=== PATIENT | female | born 1985 | race Caucasian/White ===

== ENCOUNTER 2017-01-25 18:29 | Inpatient (IN) | payer OTHER ==
[~2017-01-25] VITALS: Ht 165.1 cm; Wt 86.2 kg
[~2017-01-25 18:29] MED LIST: ALBUTEROL0.09 MG/A1 INH; AMOXIL500 MG PO; BACTRIM DS 8001 TAB PO; CIPRO 500MG TA500 MG PO; ISENTRESS400 MG PO; KEFLEX500 MG PO; LEVSIN0.125 M1 PO; MOBIC15 MG PO; MULTI-DAY PLUS1 TAB PO; PROMETHAZINE HC25 M3 PO; PYRIDIUM200 MG PO; TORADOL10 MG PO; TRAMADOL50 MG PO; TRUVADA 200 MG-1 TAB PO; VIBRAMYCIN 100100 MG PO
--- NOTE | 2017-01-25 18:58 | NUR ---
C/O ALL OVER BACK PAIN, PRIMARILY THORACIC THAT RADIATES INTO RIB CAGE AND R SIDED ABDOMEN XMONTHS. PT HAS SOB AND COUGHING WITH BROWN/BLACK SPUTUM. PT HAS HX LIVER DISEASE. SEVERE PAIN AFTER EATING, HAS DUMPING SYNDROME S/P GASTRIC BYPASS. PT IS HYPERVERBAL. +TINGLING TO BILATERAL HANDS. AAOX3
[2017-01-25 19:10] LABS: ABSOLUTE BASOPHIL COUNT 0 /CUMM (0.0-0.2); ABSOLUTE EOSINOPHIL COUNT 0 /CUMM (0.0-0.7); ABSOLUTE GRANULOCYTE CT 1.2 /CUMM (1.4-6.5); ABSOLUTE LYMPH COUNT 1.2 /CUMM (1.2-3.4); ABSOLUTE MONOCYTE COUNT 0 /CUMM (0.10-0.60); BASOPHIL % 0.2 % (0.0-2.0); EOSINOPHIL % 0.3 % (0-5); GRANULOCYTE % 48.9 % (42.2-75.2); MEAN CORPUSCULAR HGB 36.6 PG (27.0-31.0); MEAN CORPUSCULAR HGB CONC 33.8 G/DL (33.0-37.0); MEAN CORPUSCULAR VOLUME 108.2 FL (81.0-99.0); MEAN PLATELET VOLUME 8.4 FL (7.4-10.4); PLATELET COUNT 190 /CUMM (130-400); RBC DISTRIBUTION WIDTH 42.5 % (11.5-14.5); RED BLOOD CELL CT 1.52 /CUMM (4.20-5.40); WHITE BLOOD CELL COUNT 2.5 /CUMM (4.8-10.8)
[2017-01-25 19:30] LABS: HEMATOCRIT 16.5 % (37-47)
--- NOTE | 2017-01-25 19:30 | NUR ---
CRITICAL TEST RESULTS [id number] TITI REEVES 31 F TESTS AND RESULTS: HGB 5.6 HCT 16.5 Results received and read back by: BARAK GONZALEZ Results received date and time: 01/25/171929 The following provider was notified of the results, and read the results back: JONNATHAN MONCADA Notified date and time: 01/25/17 at 1931
--- NOTE | 2017-01-25 19:39 | ED GENERAL ADULT ---
History of Present Illness General Chief Complaint: Upper Extremity Problem Stated Complaint: SHOULDER AND ARM PAIN X MONTHS Source: patient Exam Limitations: no limitations Vital Signs & Intake/Output Vital Signs & Intake/Output Vital Signs Date Time Temp Pulse Resp B/P B/P Pulse O2 O2 Flow FiO2 Mean Ox Delivery Rate 01/25 2150 98.5 89 18 118/59 100 Room Air 01/25 1907 97.9 92 18 123/74 100 01/25 1845 98.5 105 16 137/64 100 Room Air Allergies Coded Allergies: doxycycline (Intermediate, GI DISTRESS 10/11/15) Iodinated Contrast- Oral and IV Dye (IODINATED CONTRAST MEDIA - IV DYE) (HIVES, ITCHY, PHOTOSENSITIVE 10/11/15) Penicillins (GI DISTRESS 10/11/15) aspirin (AVOIDS 10/11/15) cortisone (SWELLING IN KNEES, FEVER 10/11/15) acetaminophen (Intermediate, LIVER DISEASE 10/11/15) shellfish derived (Intermediate, HIVES 10/11/15) morphine (Mild, NAUSEA 10/11/15) hydrocodone (LIVER PAIN 10/11/15) Reconcile Medications Hyoscyamine (Levsin) 0.125 MG TABLET 1-2 TAB PO Q6P PRN ABDOMINAL CRAMPS Hyoscyamine (Levsin) 0.125 MG TABLET 1 TAB PO Q4 PRN ABDOMINAL SPASMS Promethazine HCl 25 MG TABLET 1 TAB PO Q6P PRN NAUSEA/VOMITING Triage Note: C/O ALL OVER BACK PAIN, PRIMARILY THORACIC THAT RADIATES INTO RIB CAGE AND R SIDED ABDOMEN XMONTHS. PT HAS SOB AND COUGHING WITH BROWN/BLACK SPUTUM. PT HAS HX LIVER DISEASE. SEVERE PAIN AFTER EATING, HAS DUMPING SYNDROME S/P GASTRIC BYPASS. PT IS HYPERVERBAL. +TINGLING TO BILATERAL HANDS Triage Nurses Notes Reviewed? yes Onset: Gradual Duration: worse persistent since (2-3 months) Timing: recent history Injury Environment: home Severity: moderate Severity Numbers: 7 No Modifying Factors: none : No Patient currently breastfeeds: No HPI: Patient is a 31-year-old female with history of anemia, chronic cirrhosis, presenting to the emergency Department chief complaint of generalized malaise, diarrhea intermittently, bilateral neck and shoulder pain that radiates down the arms causing numbness and tingling over the past 2-3 months. Patient also reports increasing in her sleep habits. Reports that she is very tired all of the time. Denies any nausea or vomiting. She does report abdominal discomfort with eating. She serve forts mucousy stool at times with remote history of Escherichia coli infection. Has seen a supervisor core shop in the past for her anemia, they were discharged out of the care of a supervisor core shop because everything was "okay". Patient did receive blood transfusions last year but nothing recently. Denies any blood in the stool. She does admit to getting her menstrual period yesterday. usually heavy flow for the first 3 days. Patient reports her symptoms started 2-3 months ago. (CORAL WHYTE) Past History Travel History Traveled to [place] past 21 day No Medical History Any Pertinent Medical History? see below for history Neurological: NONE EENT: NONE Cardiovascular: NONE Respiratory: BRONCHITIS1 Gastrointestinal: DUMPING SYNDROME S/P GASTRIC BYPASS Hepatic: CHRONIC CIRRHOSIS OF LIVE Renal: NONE Musculoskeletal: R ARM FX Psychiatric: anxiety, bipolar disease, depression, MANIC DEPRESSION PTSD Endocrine: NONE Blood Disorders: anemia Other Medical Hx: morbid obesity complicated with fatty liver w/ cirrhosis s/p gastric bypass in 2005, mood disorder including bipolar disorder History of MRSA: No History of VRE: No History of CDIFF: No Surgical History Surgical History: non-contributory Psychosocial History Who do you live with Father Services at Home None What is your primary language Lao Tobacco Use: Current Daily Use Daily Tobacco Use Amount/Type: => 5 Cigarettes daily Illicit Drug Use: cocaine Family History Family History, If Any: MOTHER FH: hepatitis FH: liver disease FATHER FH: skin cancer Hx Contributory? No (CORAL WHYTE) Review of Systems Review of Systems Constitutional: Reports: malaise, weakness. Comments Review of systems: See HPI, All other systems negative. Constitutional, no chills fever or weight loss HEENT: No visual changes no sore throat no congestion Cardiovascular: No palpitation , orthopnea or ankle swelling Skin, no jaundice no rashes Respiratory: No dyspnea cough sputum or hemoptysis GI: no vomiting : No dysuria No hematuria Muscle skeletal: Positive neck and back pain Neurologic: No numbness no confusion Psych: No stress anxiety or depression,. Heme/endocrine: No bruising no bleeding no polyuria or polydipsia Immunology: No splenectomy or history of AIDS (CORAL WHYTE) Physical Exam Physical Exam General Appearance: well developed/nourished, alert, awake, comfortable Comments: Well-developed well-nourished person in no acute distress HEENT: Normal EENT exam, extraocular motion intact, no nystagmus. Pupils equally round and reactive to light and accommodation. Nose is atraumatic. External auditory canal and Tympanic membranes clear. Pharynx normal. No swelling or edema. Pallor noted to palpable conjunctiva bilaterally. Neck: Supple, no lymphadenopathy, normal range of motion without pain or tenderness, full rom. Back: Positive right CVA tenderness. Full range of motion. Tender to palpation along the thoracic and lumbar prespinal muscles on the right side only., Cardiovascular: Regular rate and rhythms no murmurs rubs or gallops, normal JVP Respiratory: Chest nontender. No respiratory distress.breath sounds clear to auscultation bilaterally Abdomen: Soft, nontender nondistended, no appreciable organomegaly. Normal bowel sounds. No ascites, tender to palpation over the right flank, right upper quadrant. No guarding. No rebound tenderness. rectal: Nontender, guaiac-negative brown stool. Extremity: No edema, no calf tenderness to palpation, normal and equal pulses. Full range of motion of upper and lower EXT WITHOUT PAIN. Neuro: Alert oriented x3, motor sensory normal, cranial nerves II through XII grossly intact. Skin: Slight jaundice noted to palms bilaterally, otherwise no distinct rashes noted. Psych: Mood and affect is normal, memory and judgment is normal. Core Measures ACS in differential dx? Yes CVA/TIA Diagnosis: No Severe Sepsis Present: No Septic Shock Present: No (JAVI DE SANTIAGO,CORAL) Progress Differential Diagnoses I considered the following diagnoses in my evaluation of the patient: Hemolytic anemia, GI bleed, gastritis, peptic ulcer disease, pancreatitis, fibromyalgia, radicular pain, herniated disc, pneumonia, chronic bronchitis, MUSCLE STRAIN, LIVER CIRROSIS Plan of Care: Orders Procedure Date/time Status Regular Diet 01/26 B Active CBC WITHOUT DIFFERENTIAL 01/26 600 Active BASIC ELECTROLYTES PLUS BUN&CR 01/26 600 Active Pathway - chart 01/26 2248 Active House Staff 01/26 2248 Active Patient Data 01/26 2248 Active Patient Data 01/26 2148 Active OXYGEN SETUP (GEN) 01/25 2130 Active Saline Lock 01/25 2130 Active Admit to inpatient 01/25 2130 Active Vital Signs 01/25 2130 Active Activity/Ambulation 01/25 2130 Active Code Status 01/25 2130 Active Add-on Test (ER Only) 01/25 2121 Active BLOOD PRODUCT PICKUP 01/25 2113 Active LEUKOCYTE POOR (PACKED CELLS) 01/26 2012 Active Add-on Test (ER Only) 01/25 2005 Active Intake & Output 01/25 1958 Active URINE 01/26 1940 Complete URINE DRUG SCREEN FOR ER ONLY 01/26 1940 Complete URINALYSIS 01/26 1940 Complete Add-on Test (ER Only) 01/25 1937 Active PARTIAL THROMBOPLASTIN TIME 01/25 1935 Complete PROTHROMBIN TIME 01/25 1935 Complete TYPE & SCREEN (NOT X-MATCH) 01/25 1935 Active Add-on Test (ER Only) 01/25 1925 Active TROPONIN LEVEL 01/25 1900 Complete LYME TITRE 01/25 1900 Active FOLIC ACID 01/25 1900 Complete ETHANOL 01/25 1900 Complete DIRECT BILIRUBIN 01/25 1900 Complete VITAMIN B12 01/25 190 Complete LIPASE 01/25 184 Complete COMPREHENSIVE METABOLIC PANEL 01/25 184 Complete CBC WITHOUT DIFFERENTIAL 01/25 184 Complete AMYLASE 01/25 184 Complete EKG 01/25 184 Active VTE Mechanical Prophylaxis 01/25 UNK Active Laboratory Tests 01/25/172049: Urine Opiates Screen < 100.00, Methadone Screen < 40, Barbiturate Screen < 60, Ur Phencyclidine Scrn < 6.00, Amphetamines Screen < 100, U Benzodiazepines Scrn < 85, Urine Cocaine Screen 668 H, Urine Cannabis Screen < 5.00, Urine Color YEL , Urine Clarity CLEAR, Urine pH 6.0, Ur Specific [place] 1.020, Urine Protein NEG, Urine Ketones NEG, Urine Nitrite NEG, Urine Bilirubin NEG, Urine Urobilinogen >=8.0 H, Ur Leukocyte Esterase TRACE H, Ur Microscopic SEDIMENT EXAMINED, Urine RBC RARE, Urine WBC 1-3 H, Ur Epithelial Cells FEW, Urine Bacteria RARE H, Urine Hemoglobin NEG, Urine Glucose NEG, Urine Test NEGATIVE 01/25/171953: PT 11.2, INR 1.07, APTT 28 01/25/171899: Anion Gap 10, Estimated GFR > 60, BUN/Creatinine Ratio 16.0, Glucose 119 H, Calcium 8.5, Total Bilirubin 1.4 H, Direct Bilirubin 0.3, AST 62 H, ALT 49, Alkaline Phosphatase 75, Troponin I < 0.01, Total Protein 6.7, Albumin 4.0, Globulin 2.7, Albumin/Globulin Ratio 1.5, Amylase 42, Lipase 87, Vitamin B12 < 159 L, Folate 11.6, CBC w Diff NO MAN DIFF REQ, RBC 1.52 L, MCV 108.2 H, MCH 36.6 H, RDW 42.5 H, MPV 8.4, Gran % 48.9, Lymphocytes % 49.4, Monocytes % 1.2 L, Eosinophils % 0.3, Basophils % 0.2, Absolute Granulocytes 1.2 L, Absolute Lymphocytes 1.2, Absolute Monocytes 0 L, Absolute Eosinophils 0, Absolute Basophils 0, PUBS MCHC 33.8, Lyme Disease Antibody Pending, Serum Alcohol < 10.0 Diagnostic Imaging: Viewed by Me: Radiology Read. Discussed w/RAD: Radiology Read. Radiology Impression: PATIENT: TITI REEVES PRESENT AGE: 31 PATIENT ACCOUNT NO: [id number] : 83 LOCATION: [facility] ORDERING PHYSICIAN: CORAL DE SANTIAGO SERVICE DATE: 01/25/17 EXAM TYPE: RAD - XRY-CHEST XRAY, PA AND LATERAL EXAMINATION: XR CHEST CLINICAL INFORMATION: Productive cough. COMPARISON: None TECHNIQUE: 2 views of the chest were obtained. FINDINGS: No significant abnormality is noted involving the heart , lungs, mediastinum, bony thorax or soft tissues. IMPRESSION: Unremarkable examination. DICTATED BY: SOPHIA HEIN MD DATE/TIME DICTATED:01/25/171937 EMERGENCY MANAGER:LAYNE DATE/TIME TRANSCRIBED:01/25/171937 CONFIDENTIAL, DO NOT COPY WITHOUT APPROPRIATE AUTHORIZATION. <Electronically signed in Other Vendor System> SIGNED BY: SOPHIA HEIN MD 01/25/171940, PATIENT: TITI REEVES PRESENT AGE: 31 PATIENT ACCOUNT NO: [id number] : 83 LOCATION: ER ORDERING PHYSICIAN: CORAL DE SANTIAGO SERVICE DATE: 01/25/17 EXAM TYPE: CAT - CT ABD & PELVIS W/O IV CONTRAS EXAMINATION: CT ABDOMEN AND PELVIS WITHOUT CONTRAST CLINICAL INFORMATION: Right flank pain COMPARISON: Baseline 06/22/2016 TECHNIQUE: Multidetector volumetric imaging was performed from the superior aspect of the liver through the pubic symphysis. Sagittal and coronal reformatted images were obtained on the technologist's workstation. DLP: 753 mGy-cm FINDINGS: LUNG BASES: The visualized lung bases are unremarkable. LIVER, GALLBLADDER, AND BILIARY TREE: Moderate nonspecific hepatomegaly. Gallbladder not visualized. No biliary dilatation. No focal lesion. PANCREAS: Unremarkable. SPLEEN: Spleen is bulbous and enlarged measuring at least 14.4 cm. ADRENAL GLANDS: Unremarkable. KIDNEYS AND URETERS: The kidneys are normal in size, shape, and attenuation. No hydronephrosis, hydroureter, or calculi seen. No perinephric stranding. BLADDER: Unremarkable. GASTROINTESTINAL TRACT: The gastric bypass surgical changes. Anatomy limited detail. Distal Kaic- en-Y loop anastomosis appears intact. No obstruction. Moderate stool retention. Small and large bowel are unremarkable. ABDOMINAL WALL: No significant hernia is appreciated. LYMPH NODES: There is diffuse mild lymphadenopathy throughout the retroperitoneum inguinal regions and mesentery. No pathologic enlargement. VASCULAR: Unremarkable. PELVIC VISCERA: Unremarkable. OSSEOUS STRUCTURES: Unremarkable. IMPRESSION: Diffuse mild lymphadenopathy without significant progression or regression. Nonspecific hepatosplenomegaly. No bowel pathology acutely. Once again this is nonspecific but lymphoproliferative disorder should be considered as previously suggested. No stones or obstructive uropathy. DICTATED BY: SOPHIA HEIN MD DATE/TIME DICTATED:01/25/172139 EMERGENCY MANAGER: LAYNE DATE/TIME TRANSCRIBED:01/25/172139 CONFIDENTIAL, DO NOT COPY WITHOUT APPROPRIATE AUTHORIZATION. <Electronically signed in Other Vendor System> SIGNED BY: SOPHIA HEIN MD 01/25/172147 Initial ED EKG: NSR (99 BPM) (CORAL WHYTE) Departure Departure Time of Disposition: 2137 Disposition: HOME OR SELF CARE Condition: Stable Clinical Impression Primary Impression: Symptomatic anemia Referrals: JAIME LOPEZ MD (PCP/Family) Departure Forms: Customer Survey General Discharge Information Admission Note Spoke With: ELIZ CONTE MD Documentation of Exam: Documentation of any treatments & extenuating circumstances including Concerns Regarding Discharge (functional status, medication knowledge or non-compliance, living conditions, etc.) that warrant an admission rather than observation: Patient requiring IV blood transfusion for symptomatic anemia, recheck H&H, may require hematology consultation. Discharge at this time would be medically harmful. May need GI consultation pending CT of the abdomen. (CORAL WHYTE) PA/PRACTICE ADMINISTRATOR Co-Sign Statement Statement: ED Attending supervision documentation- x I saw and evaluated the patient. I have also reviewed all the pertinent lab results and diagnostic results. I agree with the findings and the plan of care as documented in the PA's/PRACTICE ADMINISTRATOR's documentation. [] I have reviewed the ED Record and agree with the PA's/PRACTICE ADMINISTRATOR's documentation. [] Additions or exceptions (if any) to the PAs/PRACTICE ADMINISTRATOR's note and plan are summarized below: [] (SHA OLIVO,DOROTHY) Critical Care Note Critical Care Note Critical Care Time: non-applicable (CORAL WHYTE)
--- NOTE | 2017-01-25 19:41 | RADIOLOGY REPORT ---
EXAMINATION: XR CHEST CLINICAL INFORMATION: Productive cough. COMPARISON: None TECHNIQUE: 2 views of the chest were obtained. FINDINGS: No significant abnormality is noted involving the heart, lungs, mediastinum, bony thorax or soft tissues. IMPRESSION: Unremarkable examination.
[2017-01-25 20:10] LABS: PT 11.2 SEC (9.4-12.5); PTT 28 SEC (25-37)
--- NOTE | 2017-01-25 21:27 | NUR ---
PT TO CT
--- NOTE | 2017-01-25 21:32 | NUR ---
PT RETURNED FROM CT
--- NOTE | 2017-01-25 21:48 | CT SCAN REPORT ---
EXAMINATION: CT ABDOMEN AND PELVIS WITHOUT CONTRAST CLINICAL INFORMATION: Right flank pain COMPARISON: Baseline 06/22/2016 TECHNIQUE: Multidetector volumetric imaging was performed from the superior aspect of the liver through the pubic symphysis. Sagittal and coronal reformatted images were obtained on the technologist's workstation. DLP: 753 mGy-cm FINDINGS: LUNG BASES: The visualized lung bases are unremarkable. LIVER, GALLBLADDER, AND BILIARY TREE: Moderate nonspecific hepatomegaly. Gallbladder not visualized. No biliary dilatation. No focal lesion. PANCREAS: Unremarkable. SPLEEN: Spleen is bulbous and enlarged measuring at least 14.4 cm. ADRENAL GLANDS: Unremarkable. KIDNEYS AND URETERS: The kidneys are normal in size, shape, and attenuation. No hydronephrosis, hydroureter, or calculi seen. No perinephric stranding. BLADDER: Unremarkable. GASTROINTESTINAL TRACT: The gastric bypass surgical changes. Anatomy limited detail. Distal Kaci-en-Y loop anastomosis appears intact. No obstruction. Moderate stool retention. Small and large bowel are unremarkable. ABDOMINAL WALL: No significant hernia is appreciated. LYMPH NODES: There is diffuse mild lymphadenopathy throughout the retroperitoneum inguinal regions and mesentery. No pathologic enlargement. VASCULAR: Unremarkable. PELVIC VISCERA: Unremarkable. OSSEOUS STRUCTURES: Unremarkable. IMPRESSION: Diffuse mild lymphadenopathy without significant progression or regression. Nonspecific hepatosplenomegaly. No bowel pathology acutely. Once again this is nonspecific but lymphoproliferative disorder should be considered as previously suggested. No stones or obstructive uropathy.
--- NOTE | 2017-01-25 21:50 | NUR ---
1ST UNIT OF BLOOD TRANSFUSION STARTED.
--- NOTE | 2017-01-25 21:51 | History & Physical ---
GEOVANNI OLIVO,[facility] 01/25/17 8934: General Information and HPI MD Statement: I have seen and personally examined TITI FLORES and documented this H&P. The patient is a 31 year old F who presented with a patient stated chief complaint of [worsening fatigue, muscle spasms, radiating pain from her neck to her fingers]. Source of Information: patient, family Exam Limitations: no limitations History of Present Illness: The patient is a 31-year-old female with past history of anemia, obesity with fatty liver cirrhosis, Rupesh-en-Y gastric bypass with syndrome, anxiety, bipolar disorder, depression, PTSD, recurrent vaginal yeast infections, and gential hsv1 presenting with a chief complaint of worsening fatigue, muscle spasms, radiating pain from her neck to her fingers. The patient states her symptoms have been bothering her for 1 year. She says she has spasms of the forearms which radiate to spasms of her biceps. 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 She reports smoking 5 cigarettes to half ppd more recently. She used to smoke 1ppd since 10 years old. She states she used to use cocaine on a frequeny basis but now has tried to decrease her frequency. She last used it last week. She also complains of pain in her cervical thoracic spine which radiate down her neck into her shoulder into her arms and in then finally into her fingers. She has been noticeably more fatigued. She states that she is so fatigued that she will choke on her mucus. She comments that her mucus is black in this chunky looking. She also states that her stool was light pastel-colored. She states that she may have hemorrhoids because she intermittently gets blood on the toilet paper when she wipes. She will have one hard stool and then subsequent loose stools during a bowel movement. She denies any blood in her stools or vomit. Guaiac test in the emergency department which was negative. She is currently not employed and says that she stays in bed most the day she has no energy to do anything. She feels lightheaded. Has some shortness of breath and chest pain. The chest pain is centrally located around the sternum and is nonradiating. Patient states that she does not have regular menstrual periods when she is using cocaine. She just began her menstrual cycle yesterday. She states her period last 3 days. She will have a bleeding on the first day then none on the second day and then spotting on the third day. She also reports a history of easy bruising and poor wound healing. She reports many other symptoms that have occurred during this time span. She has noticed a weight loss of 220 pounds 185 pounds in the past 2 years but states her appetite is good. She has noticed chills and night sweats. She has also noticed some vision changes which she describes as bright white light that she sees intermittently. She states that his abdominal pain associated with nausea and vomiting. The patient was diagnosed with vaginal HSV 1 4 weeks ago, and is currently taking Valtrex. She also states she was released from longterm 2 years ago. The patient self reports feeling anxious at this time. Allergies/Medications Allergies: Coded Allergies: doxycycline (Intermediate, GI DISTRESS 10/11/15) Iodinated Contrast- Oral and IV Dye (IODINATED CONTRAST MEDIA - IV DYE) (HIVES, ITCHY, PHOTOSENSITIVE 10/11/15) Penicillins (GI DISTRESS 10/11/15) aspirin (AVOIDS 10/11/15) cortisone (SWELLING IN KNEES, FEVER 10/11/15) acetaminophen (Intermediate, LIVER DISEASE 10/11/15) shellfish derived (Intermediate, HIVES 10/11/15) morphine (Mild, NAUSEA 10/11/15) hydrocodone (LIVER PAIN 10/11/15) Past History Travel History Traveled to [place] past 21 day No Medical History Gastrointestinal: rupesh-en-Y gastric bypass with dumping syndrome, morbid obesity Hepatic: fatty liver with cirrhosis Psychiatric: anxiety, bipolar disease, depression, MANIC DEPRESSION PTSD Blood Disorders: anemia 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: HSV1 Other Medical Hx: morbid obesity complicated with fatty liver w/ cirrhosis s/p gastric bypass in 2005 History of MRSA: No History of VRE: No History of CDIFF: No Surgical History Surgical History: rupesh-en-y gastric bypass Past Family/Social History Family History Relations & Conditions if any MOTHER FH: hepatitis FH: liver disease FATHER FH: skin cancer Psychosocial History Services at Home: None Smoking Status: Current Everyday Smoker ETOH Use: quit 3-4 years ago Illicit Drug Use: cocaine Review of Systems Review of Systems Constitutional: Reports: chills, diaphoresis, malaise, weakness, unexplained weight loss. EENTM: Reports: visual changes. Cardiovascular: Reports: chest pain. Respiratory: Reports: cough, short of breath. GI: Reports: abdominal pain, nausea, changes in stool, vomiting. Genitourinary: Denies: no symptoms. Musculoskeletal: Reports: back pain, muscle pain, neck pain. Neurological/Psychological: Reports: anxiety. Hematologic/Endocrine: Reports: bruising. Exam & Diagnostic Data Last 24 Hrs of Vital Signs/I&O Vital Signs Date Time Temp Pulse Resp B/P B/P Pulse O2 O2 Flow FiO2 Mean Ox Delivery Rate 01/25 2330 98.9 87 18 125/61 100 Room Air 01/25 2150 98.5 89 18 118/59 100 Room Air 01/25 1907 97.9 92 18 123/74 100 08 1845 98.5 105 16 137/64 100 Room Air Intake & Output 01/26 0800 07 0000 01/25 1600 Intake Total 1000 Output Total Balance 1000 Intake, IV 1000 Patient 190 lb 190 lb Weight Weight Estimated Estimated Measurement Method Physical Exam General Appearance Alert, Oriented X3, Cooperative, Mild Distress Skin No Rashes, No Breakdown, midline lumbar tenderness. the patient did not wince in pain. It seemed like it was more ticklish. Skin Temp/Moisture Exam: Warm/Dry HEENT Atraumatic, PERRLA, EOMI, Chvostek's sign negative Cardiovascular Regular Rate, Normal S1, Normal S2, No Murmurs Lungs Clear to Auscultation, Normal Air Movement, R mild CVA tenderness Abdomen Normal Bowel Sounds, Soft, reyes sign +, no appreciable hepatosplenomegaly as noted on images Neurological Cranial Nerves 3-12 NL Extremities No Edema, Normal Pulses Diagnostic Data EKG Results QTC 426 NSR CXR Results FINDINGS: No significant abnormality is noted involving the heart, lungs, mediastinum, bony thorax or soft tissues. IMPRESSION: Unremarkable examination. Other Results EXAM TYPE: CAT - CT ABD & PELVIS W/O IV CONTRAST IMPRESSION: Diffuse mild lymphadenopathy without significant progression or regression. Nonspecific hepatosplenomegaly. No bowel pathology acutely. Once again this is nonspecific but lymphoproliferative disorder should be considered as previously suggested. No stones or obstructive uropathy. Assessment/Plan Assessment: The patient is a 31-year-old female with past history of anemia, obesity with fatty liver cirrhosis, Rupesh-en-Y gastric bypass with syndrome, anxiety, bipolar disorder, depression, PTSD, recurrent vaginal yeast infections, and gential hsv1 presenting with a chief complaint of worsening fatigue, muscle spasms, radiating pain from her neck to her fingers found to have macrocytic anemia, generalized lethargy and pain, vitamin b12 deficiency, cocaine use history and CT revealed retropertoneal lymphadenopathy and hepatosplenomegaly. As Ranked By This Provider Problem List: 1. Anemia Assessment/Plan The patient has a chronic history of anemia. The cause of her anemia is most likely multifactorial. She has a history of Rupesh-en-Y gastric bypass currently not on any vitamin supplementation. Her white count was 2.5, hemoglobin was 5.6 , hematocrit was 16.5, MCV was 108.2. Platelet count was 190. The labs display a pancytopenia. Her iron was 218. Her vitamin B12 was less than 159. Her folate was normal at 11.6. We will transfuse her with 2 units of packed red blood cells. We will check her CBCs in a.m. She currently reports chunky sputum without any hematemesis. She does report a history of aleve use and epigastric pain. We will consult GI in the morning regarding given his Rupesh-en-y , anemia, and aleve use. Rectal examination done in ER negative for maykel or occult blood. We will also send labs to complete the anemia workup. We will avoid any NSAIDs and consider starting Protonix. We will give her vit D, and a 1 dose B12 shot. Vit D defiency is a possible cause of her generalized malaise and pain. Given her substance abuse history, history of longterm, and risk sexual activity, we will also test for HIV as a possible cause of pancytopenia and PPD for TB given her history of weight loss, longterm, and night sweats. Another potential diagnosis could be bacterial overgrowth syndrome given her history of rupesh-en-Y, and low B12. -Transfuse her-2 units of PRBCs -Check CBC in a.m. -GI consult in a.m for history of aleve use, anemia, and epigastric pain -F/u TIBC, Ferritin, Total Iron, reticulocyte count, transferrin, reticulocyte count, magnesium, TSH, vitamin D -Continue vit D, b12 as needed -Avoid NSAIDs -f/u HIV and ppd 2. Lymphadenopathy Assessment/Plan Ct scan revealed mild lymphadenopathy throughout the retroperitoneum inguinal regions and mesentery. In the setting of her weight loss and night sweats this is concerning for an oncological origin. We will consult heme-onc in the AM. -place heme-onc consult 3. Generalized pain Assessment/Plan The patient complains of diffuse pain including the following: Cervical thoracic neck pain radiating down to her neck, shoulders, arm, and then fingers bilaterally. She complains of epigastric pain. She also had tenderness in her lumbar spine upon examination. However upon examination she did not actually wince in pain. It was more as she was ticklish. She also complains of spasms of her forearm reading to her biceps. However given her history of Rupesh-en-Y gastric bypass and most likely vitamin D deficiency, the lack of absorption of calcium by her GI system can be due to hyperparathyroidism causing bone pain and spasms. When we checked her chvostek's sign, it was negative. We will follow her vitamin D levels and supplement as needed. -Follow-up vitamin D 4. Substance abuse Assessment/Plan Patient complains of epigastric. Patient admits to cocaine use. She states she sees cocaine frequently but has decreased her use. Her last use was a week ago. Her urine tox revealed a cocaine of 668. Her initial troponins were less than 0.01, her second troponins were also less than 0.01. We will continue to trend the troponins and repeat EKG to rule out ACS. We will order a social work consult. The patient's amylase was 42, lipase 87. Making pancreatitis a cause of her epigastric pain very unlikely. -Follow-up troponins and repeat EKG in a.m. -Order social work msw consult 5. HSV-1 infection Assessment/Plan The patient reports a history of herpes simplex 1 infection of her genitalia. She was started on valacyclovir by her SUMMER COUNSELOR. We will continue her home dose of valacyclovir. -Continue valyclovir 500 mg po daily 6. Liver cirrhosis Assessment/Plan The patient reports a history of morbid obesity which was complicated by cirrhosis due to fatty liver disease. Her total bili was elevated slightly at 1.4. Direct bili was 0.3. Her AST was slightly elevated at 60. Her ALT was 49. ALP was 75. On physical exam with a positive Reyes sign. We will continue to monitor her hepatic function. -Continue to monitor hepatic function 7. DVT prophylaxis Assessment/Plan ALPS 8. Full code status Assessment/Plan Full code Core Measures/Miscellaneous Acute Coronary Syndrome ACS Diagnosis: No Cerebrovascular Accident CVA/TIA Diagnosis: No Congestive Heart Failure CHF Diagnosis: No VTE (View Protocol) VTE Risk Factors: Acute medical illness [facility] prophylaxis d/t: No contraindications No VTE Pharm Prophylaxis d/t: Active bleeding VTE Diagnosis: No VTE Type: NONE VTE Confirmed by (Test): NONE Sepsis (View Protocol) Severe Sepsis Present: No Septic Shock Septic Shock Present: No Miscellaneous Documentation Attending Case Discussed With: ELIZ CONTE MD Primary Care Physician: JAIME LOPEZ MD Patient sees these Specialists NA Level of Patient Care: General Medicine AMBROSIO OLIVO,[facility] 01/25/17 2335: General Information and HPI Allergies/Medications Home Med list Cholecalciferol (Vitamin D3) (Vitamin D3) 400 UNIT TABLET 1 TAB PO DAILY SUPPLEMENT Gabapentin 100 MG CAPSULE 1 TAB PO Q8 PRN NEUROPATHIC PAIN Hyoscyamine (Levsin) 0.125 MG TABLET 1-2 TAB PO Q6P PRN ABDOMINAL CRAMPS Multivitamin (One Daily Multivitamin) 1 EACH TABLET 1 TAB PO DAILY SUPPLEMENT Promethazine HCl 25 MG TABLET 1 TAB PO Q6P PRN NAUSEA/VOMITING Resident Review Statement Resident Statement: examined this patient, discussed with architect internship, agreed with architect internship Other Findings: Ms. Melissa is a 31-year-old female with past medical history of fatty liver with cirrhosis, status post gastric bypass in 2005, bipolar, frequent cellulitis and anemia who presents to the emergency department on 01/25/2017 complaining of pain all over. Patient states that she has continued to experience worsening back and hand pain. 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 Since then she has been continued to experience numbness and muscle spasms radiating from her biceps to her forearms. Over last 24 hours the patient states that she was extremely tired and lethargic and felt that she could not move her body. She also felt lightheaded. She also endorsed shortness of breath. The patient lives at home with the father was prompted to come in this evening after the father found that she was getting increasingly weak. Patient does have an extensive drug use history and currently endorses using crack cocaine on a weekly basis. She also smokes approximately 5 to half a pack of cigarettes per day she started smoking when she was 10. Patient also has a history of HSV 1 which was diagnosed 4 weeks ago for which she is currently taking Valtrex. Patient does also endorse she uses Aleve as needed for generalized pain. Guaiac test was done at the emergency department which was negative. She denies any maykel hematochezia or melena. She does endorse occasional blood on toilet paper which she attributes to hemorrhoids. She also states that her menses are relatively heavy in flow. Her cycles however have been irregular owing to her social history with drug usage. On review of systems. She denied any fevers, or endorsed occasional flushing ( she was undergoing a blood transfusion, however was afebrile) and being warm. She denied any nausea or vomiting. Denies easy bruisability. Examination: Vital signs at the time of admission: temperature 98.5, pulse rate 105, respiratory rate 16, blood [id number], pulse ox 100% on room air. HEENT: extraocular motion intact, no nystagmus. Pupils equally round and reactive to light and accommodation. Nose is atraumatic. External auditory canal and Tympanic membranes clear. Pharynx normal. No swelling or edema. Neck: Supple, no lymphadenopathy, normal range of motion without pain or tenderness Back: Nontender,Right CVA Mild tenderness. Point tenderness in the lumbar area. Skin: No appreciable rash on exposed skin, skin is warm and dry Cardiovascular: Regular rate and rhythm no murmurs rubs or gallops. Respiratory: Chest nontender. No respiratory distress. Breath sounds clear to auscultation bilaterally Abdomen: Soft, nontender nondistended, no appreciable organomegaly. Normal bowel sounds. No ascites, no rebound or guarding. Reyes sign +. Splenomegaly. Extremity: No edema, no calf tenderness to palpation, normal and equal pulses. Neuro: Alert oriented to person and place,motor sensory normal, CN II to XII wnl. Lab work: White blood cell count 2.5, H&H 5.6 and 16.5 respectively, platelets 190, NA 140 , potassium 3.8, BUN/creatinine 8 and 0.5. I: EXAM TYPE: RAD - XRY-CHEST XRAY, PA AND LATERAL IMPRESSION: Unremarkable examination. EXAM TYPE: CAT - CT ABD & PELVIS W/O IV CONTRAST IMPRESSION: Diffuse mild lymphadenopathy without significant progression or regression. Nonspecific hepatosplenomegaly. No bowel pathology acutely. Once again this is nonspecific but lymphoproliferative disorder should be considered as previously suggested. No stones or obstructive uropathy. EKG: QTC 426. NSR. A/P Ms Flores is a 31-year-old female who was presented to the emergency department complaining of weakness and upper extremity pain. She does have a history of Rupesh-en-Y bypass done in 2005 has not been taking by mouth PO supplements over the last few months. Will admit the patient to general medicine service. #Symptomatic anemia. Multifactorial in origin combination of which might be vitamin B-12 deficiency, due to macrocytosis. A high MCV likely is a result of vitamin B12 deficiency given the history of gastric bypass in 2005. We also want to rule out iron deficiency anemia owing to menorrhagia. Transfuse her-2 units of PRBCs. Target H/H > 7.0 and 21. Check CBC in a.m. GI consult in a.m. May be warranted for a EGD. Complete anemia workup: TIBC, Ferritin, Total Iron, reticulocyte count. Transferrin Saturation: 0.65 Supplement deficiencies as needed. Vitamin B12 IM, until normal physiologic values are reached, then can transition to oral. Avoid NSAIDs. May consider addition of Protonix. Pancytopenia, splenomegaly and mild lymphadenopathy. Imaging studies concerning for potential hematologic and oncologic abnormalities , vs mesenteric adenitis. Will obtain a Six Sigma Black Belt Engineer consultation in a.m. Vitamin B12 deficiency can also cause a decreased WBC count. Bilateral upper extremity weakness and pain. Likely multifactorial in etiology, potentially some psychaitric component. Prolonged Vitamin D deficiency may engage to reduced absorption of calcium and phosphorus S[place]ley to secondary hyperparathyroidism leading to bone pain, tenderness and muscle weakness. The patient may be considered for aggressive vitamin D supplementation with 50,000 international units of vitamin D-2 once per week for 6-8 weeks and then 800 units of vitamin D3 daily thereafter. Vitamin D level in a.m. Supplement accordingly. Rule out ACS Given the patient's history of cocaine abuse, we will trend troponins and EKG. First troponin within normal limits. Second troponin is pending. Vitamin B12 deficiency Patient had a very low vitamin B-12. She does not take medications or supplements. We'll begin the patient on vitamins as needed. History of substance abuse and risky behavior. Consider social work consult in a.m. HIV test, consent gained. Psychiatric consultation for ongoing drug use. DVT prophylaxis ALP S Diet Regular diet Code Full code ELIZ CONTE 01/26/17 0302: Attending MD Review Statement Attending Statement Attending MD Statement: examined this patient, discuss w/resident/PA/FIXER BOARDING ROOM, agreed w/resident/PA/FIXER BOARDING ROOM, reviewed EMR data (avail), reviewed images, amended to note Attending Assessment/Plan: CC: Multiple complaints mostly lethargy and weakness PMH: Obesity S/P gastric bypass 2005, significant weight loss, fatty liver leading to cirrhosis, chronic anemia, bipolar disorder with anxiety , genital herpes on recently started Valtrex Patient is poor historian, comes to ER with multiple complaints including but not limited to generalized lethargy, severe weakness all over, neck pain, shoulder pain and weakness, tingling numbness bilateral hands radiating proximally, low back pain, substernal pain, epigastric pain, daytime intermittent sweating after meals secondary to dumping syndrome, recurrent vomiting after meals and nonbloody, chronic cough with black colored sputum, occasional drenching night sweats, weight loss. Patient admits extensive cocaine use , trying to reduce, Extensive alcohol history quit 4 years back, current smoker, ex-boyfriend as "bad company", history of incarceration 2 years back. Patient states that whenever she goes on drug using face she does not eat for 2- 3 days at a stretch. She does not follow-up with the doctors, not on any by mouth vitamin supplementations after gastric bypass including vitamin D and B12. Previously seen dining room host for anemia. Denies black colored stool, has some blood on wipes occasionally. Denies any blood in vomiting of black colored vomiting. Menstrual periods are irregular, not heavy. Vitals: Afebrile, pulse 105 on presentation improved to 92, RR 16, blood pressure 137/62, saturating well on room air. On exam: A O 3, cooperative, pale, no acute distress, neck supple, JVD normal, no cervical, axillary or inguinal lymphadenopathy, mucosa moist, no focal neurological deficit, no dependent edema, no obvious skin rashes or inflammation CVS: S1-S2, systolic murmur in pulmonic area, RRR. RS: Clear to auscultate bilaterally. Abdomen: Soft, mild epigastric and right upper quadrant tenderness, ND, bowel sounds present. Labs: WBC 2.5, hemoglobin 5.6, hematocrit 16.5, platelet 190, MCV 108, BP unremarkable, glucose 119, calcium 8.5, bilirubin 1.4, AST 62, ALT 49, alkaline phosphatase 75, troponin <0.01, albumin 4.0, lipase 87, B12 less than 159, folate 11.6, INR 1.07 UA positive for leukocyte esterase U tox positive for cocaine CXR: No significant abnormality is noted involving the heart, lungs, mediastinum , bony thorax or soft tissues. CT abdomen and pelvis without contrast: Diffuse mild lymphadenopathy without significant progression or regression. Nonspecific hepatosplenomegaly. No bowel pathology acutely. here is diffuse mild lymphadenopathy throughout the retroperitoneum inguinal regions and mesentery. Once again this is nonspecific but lymphoproliferative disorder should be considered as previously suggested. No stones or obstructive uropathy. EKG no acute changes A and P 31 year old female with past medical history significant for gastric bypass with Rupesh-en-Y done in 2005 followed by significant weight loss at that time, noncompliant, not on any supplements, does not follow with physicians, came with multiple complaints as mentioned in HPI including but not limited to lethargy, weakness, tingling numbness, spasms aches and pains, recurrent vomiting, dumping syndrome. endorses cocaine use. On examination patient is pale, no obvious neurological deficit noticed. No obvious lymphadenopathy. She is found to have leukopenia, anemia, macrocytosis, mildly elevated bilirubin and AST, B12 deficiency, folate 11.6, lipase 87, urine positive for cocaine. She appears to have macrocytic anemia probably secondary to B12 deficiency, malabsorption +/- bacterial overgrowth syndrome. Given history of Rupesh-en-Y surgery, further evaluation of anemia for iron deficiency, reticulocyte count should evaluated. She also admits occasional Aleve use. Rectal examination done in ER negative for maykel or occult blood. Patient is also having retroperitoneal lymphadenopathy ( which could be nonspecific), but also has night sweats, significant weight loss in last 1 year with 170 pounds, history of incarceration 2 years back, "bad boyfriend", should be checked for HIV, PPD for tuberculosis. Also would benefit from hematology consultation :? Lymphoproliferative disorder. Splenomegaly appears secondary to cirrhosis. ` Microcytic anemia chronic ` Generalized lethargy ` Vitamin B-12 deficiency ` Retroperitoneal lymphadenopathy ` Hepatosplenomegaly ` Cocaine use -Admit to general medical floor - Patient had been ordered to transfuse, 2 unit PRBC in ER, follow-up CBC in morning after transfusion - Add iron, TIBC, ferritin, transferrin saturation, reticulocyte count, magnesium, TSH, vitamin D to the initial sample - Inform Dr. Salamanca patient known to him - Consult pan shover for history of Rupesh-en-Y, use of Aleve and anemia, epigastric pain: ? Inpatient versus outpatient EGD. Her previous endoscopy was few years back - Serial troponin and EKG : Recent use of cocaine - Check PPD, HIV - Continue home doses of Valtrex, supplementation with vitamin D, B12 - Adequate pain control - DVT prophylaxis with heparin or Lovenox
--- NOTE | 2017-01-25 22:33 | NUR ---
PT TO ROOM 215 BED 2
--- NOTE | 2017-01-25 22:54 | NUR ---
REPORT CALLED TO CYNDY HEDRICK
--- NOTE | 2017-01-25 23:03 | NUR ---
HOUSE STAFF AT BEDSIDE FOR EVAL.
--- NOTE | 2017-01-26 03:03 | Admission Certification ---
Admission Certification Certification Statement - As attending physician, I certify that at the time of - admission, based on clinical presentation, severity of - symptoms, need for further diagnostic testing and - therapeutic interventions, and risk of adverse outcomes - without in-hospital treatment, in my clinical assessment, - this patient requires an acute hospital stay for a minimum - of two nights or longer. I have also considered psychsocial - factors such as support system, advanced age, financial - issues, cognitive issues, and failed out-patient treatments, - past re-admission history, safety of patient, and lack of - compliance as applicable. Specific rationale supporting this admission is: Symptomatic anemia
--- NOTE | 2017-01-26 07:15 | NUR ---
LATE ENTRY: PT NOTED WITH HX ESBL. PLACED IN PRIVATE ROOM. PRECAUTIONS INSTITUTED. DIRECTOR FUNDS DEVELOPMENT SRIDHAR NOTIFIED- SNO FOR CONTACT PRECAUTIONS. PT UPDATED AND EDUCATED. WILL CONT TO MONITOR.
[2017-01-26 07:19] VITALS: BP 148/70
[2017-01-26 08:16] LABS: ABSOLUTE BASOPHIL COUNT 0 /CUMM (0.0-0.2); ABSOLUTE EOSINOPHIL COUNT 0 /CUMM (0.0-0.7); ABSOLUTE GRANULOCYTE CT 1.2 /CUMM (1.4-6.5); ABSOLUTE LYMPH COUNT 1.6 /CUMM (1.2-3.4); ABSOLUTE MONOCYTE COUNT 0 /CUMM (0.10-0.60); BASOPHIL % 0.1 % (0.0-2.0); EOSINOPHIL % 0.5 % (0-5); GRANULOCYTE % 42.2 % (42.2-75.2); MEAN CORPUSCULAR HGB 34.8 PG (27.0-31.0); MEAN CORPUSCULAR HGB CONC 33.8 G/DL (33.0-37.0); PLATELET COUNT 169 /CUMM (130-400); RBC DISTRIBUTION WIDTH 33.7 % (11.5-14.5); WHITE BLOOD CELL COUNT 2.9 /CUMM (4.8-10.8)
[2017-01-26 09:40] LABS: RED BLOOD CELL CT 2.04 /CUMM (4.20-5.40)
--- NOTE | 2017-01-26 11:26 | Cons- Gastroenterology ---
General Information and HPI Consulting Request Date of Consult: 01/26/17 (MD NATHAN/GASTROENTEROLOGY) Requested By: ELIZ CONTE MD Reason for Consult: Anemia Source of Information: patient Exam Limitations: poor historian History of Present Illness: 31-year-old patient who had a gastric bypass 11 years ago, without regular follow-up by gastroenterology or bariatric surgery. She apparently saw Dr. Serna in [place], years ago. At the time of surgery at [facility] she was told she was cirrhotic, apparently confirmed by biopsy, deemed secondary to fatty liver. She claims to have not been an alcohol abuser; the record states otherwise. She has a history of cocaine abuse, but has been tested negative for hepatitis B, hepatitis C and HIV. She denies jaundice, easy bleeding, edema, encephalopathy, prior GI bleed. She does bruise easily. In 2011 she had a cholecystectomy; the liver was described as cirrhotic, not biopsied. The patient has chronic right back and right upper quadrant pain, worse with change in position, but apparently also worse with eating. In addition she has had chronic epigastric pain, worse with eating. She has heartburn, but no dysphagia, nausea or vomiting. She has irregular bowel habits, with frequent diarrhea or mucus per rectum. There has been no hematochezia or melena, although she sees blood on toilet paper occasionally. She uses Aleve although she says only occasionally. In the past she had postprandial nausea, vomiting and diarrhea, but this is rare at this time. She does have somnolence and sweating after eating which she labels as "dumping." She saw Dr. 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 The patient has had 1 year of muscle pain and weakness, numbness/tingling in arms/hands and legs/feet, fatigue. She has had hair loss, rash, easily damaged nails. She is known to have B12 deficiency, but has been noncompliant with hematology follow-up and B12 supplementation. She has been admitted with these symptoms, and found to have severe anemia with leukopenia, as well as a CT scan redemonstrating intra-abdominal adenopathy. Stool was described as Hemoccult negative. Family history positive for mother with hepatitis C, of liver failure. No known GI malignancy. Social history as above. 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 Disabled. Allergies/Medications Allergies: Coded Allergies: doxycycline (Intermediate, GI DISTRESS 10/11/15) Iodinated Contrast- Oral and IV Dye (IODINATED CONTRAST MEDIA - IV DYE) (HIVES, ITCHY, PHOTOSENSITIVE 10/11/15) Penicillins (GI DISTRESS 10/11/15) aspirin (AVOIDS 10/11/15) cortisone (SWELLING IN KNEES, FEVER 10/11/15) acetaminophen (Intermediate, LIVER DISEASE 10/11/15) shellfish derived (Intermediate, HIVES 10/11/15) morphine (Mild, NAUSEA 10/11/15) hydrocodone (LIVER PAIN 10/11/15) Home Med List: Hyoscyamine (Levsin) 0.125 MG TABLET 1-2 TAB PO Q6P PRN ABDOMINAL CRAMPS Hyoscyamine (Levsin) 0.125 MG TABLET 1 TAB PO Q4 PRN ABDOMINAL SPASMS Promethazine HCl 25 MG TABLET 1 TAB PO Q6P PRN NAUSEA/VOMITING Current Medications: Current Medications Sig/Josr Start time Last Medication Dose Route Stop Time Status Admin Acetaminophen 500 MG ONCE ONE 01/26 0600 CAN PO 01/26 0601 Cholecalciferol 400 IU DAILY 01/26 1000 AC 01/26 PO 0957 Cyanocobalamin 1,000 MCG ONCE ONE 01/26 0215 DC 01/26 IM 01/26 0216 0832 Diphenhydramine HCl 25 MG AT BEDTIME PRN 01/26 0100 AC 01/26 PO 0241 Lidocaine 1 PAT ONCE ONE 01/25 2045 DC 01/25 EXT 01/25 2046 210 Oxycodone HCl 2.5 MG ONCE ONE 01/26 0600 DC 01/26 PO 01/26 0601 0646 Tuberculin PPD 0.1 ML ONCE ONE 01/26 0100 DC 01/26 ID 01/26 0101 0832 Valacyclovir HCl 500 MG 2200 01/26 2200 AC PO Valacyclovir HCl 500 MG DAILY 01/26 0100 DC 01/26 PO 0241 Past History Travel History Traveled to [place] past 21 day No Medical History Gastrointestinal: rupesh-en-Y gastric bypass with dumping syndrome morbid obesity Hepatic: fatty liver with cirrhosis Psychiatric: anxiety, bipolar disease, depression, MANIC DEPRESSION PTSD Blood Disorders: anemia 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 Denies: fever. EENTM: Denies: icterus, epistaxis. Cardiovascular: Denies: chest pain, edema. Respiratory: Denies: cough, short of breath. GI: Reports: see HPI. Genitourinary: Denies: dysuria, hematuria. Musculoskeletal: Reports: back pain, muscle pain. Denies: joint swelling. Skin: Denies: jaundice, lesions. Neurological/Psychological: Reports: ataxia, numbness, paresthesia, tingling, weakness. Denies: cognitive dysfunction, tremors, tonic-clonic seizures. Hematologic/Endocrine: Reports: bruising. Denies: bleeding, polyuria, polydipsia. Immunologic/Allergic: Denies: splenectomy, HIV/AIDS. Exam & Diagnostic Data Vital Signs and I&O Vital Signs Date Time Temp Pulse Resp B/P B/P Pulse O2 O2 Flow FiO2 Mean Ox Delivery Rate 01/26 719 98.2 96 20 148/70 98 01/25 2330 98.9 87 18 125/61 100 Room Air 01/25 2150 98.5 89 18 118/59 100 Room Air 01/25 1907 97.9 92 18 123/74 100 01/25 1845 98.5 105 16 137/64 100 Room Air Intake & Output 01/26 1600 01/26 0400 01/25 1600 01/25 0400 01/24 1600 01/24 0400 Intake Total 750 1000 Output Total Balance 750 1000 Intake, Blood 750 Product Intake, IV 1000 Patient 190 lb Weight Weight Estimated Measurement Method Physical Exam: Well-developed well-nourished, in no apparent distress. Alert and oriented with normal cognition. Skin normal without rash, lesion, jaundice, petechiae, purpura, ecchymoses, spider telangiectasias, palmar erythema. No adenopathy. Sclera anicteric. No oropharyngeal lesion. No macroglossia. Neck supple without thyromegaly or mass. Heart regular rhythm. Lungs clear. Abdomen obese , soft, nondistended with normal bowel sounds; there is tenderness to light palpation of the right upper quadrant with positive Carnett's sign, without palpable liver. Positive spleen tip. Extremities without clubbing, cyanosis or edema. Pulses intact. No asterixis. Results Pertinent Lab Results: Laboratory Tests 01/26 01/26 0630 0115 Chemistry Sodium (137 - 145 mmol/L) 142 Potassium (3.5 - 5.1 mmol/L) 3.9 Chloride (98 - 107 mmol/L) 108 H Carbon Dioxide (22 - 30 mmol/L) 28 Anion Gap (5 - 16) 6 BUN (7 - 17 mg/dL) 8 Creatinine (0.5 - 1.0 mg/dL) 0.5 Estimated GFR (>60 ml/min) > 60 BUN/Creatinine Ratio (7 - 25 %) 16.0 Troponin I (< 0.11 ng/ml) < 0.01 TSH (0.270 - 4.200 uIU/mL) 1.660 Hematology CBC w Diff MAN DIFF ORDERED WBC (4.8 - 10.8 /CUMM) 2.9 L RBC (4.20 - 5.40 /CUMM) 2.04 L Hgb (12.0 - 16.0 G/DL) 7.1 *L Hct (37 - 47 %) 21.0 L MCV (81.0 - 99.0 FL) 103.0 H MCH (27.0 - 31.0 PG) 34.8 H RDW (11.5 - 14.5 %) 33.7 H Plt Count (130 - 400 /CUMM) 169 MPV (7.4 - 10.4 FL) 9.0 Gran % (42.2 - 75.2 %) 42.2 Lymphocytes % (20.5 - 51.1 %) 56.0 H Monocytes % (1.7 - 9.3 %) 1.2 L Eosinophils % (0 - 5 %) 0.5 Basophils % (0.0 - 2.0 %) 0.1 Absolute Granulocytes (1.4 - 6.5 /CUMM) 1.2 L Absolute Lymphocytes (1.2 - 3.4 /CUMM) 1.6 Absolute Monocytes (0.10 - 0.60 /CUMM) 0 L Absolute Eosinophils (0.0 - 0.7 /CUMM) 0 Absolute Basophils (0.0 - 0.2 /CUMM) 0 Polychromasia 1+ Hypochromic-Microcytic 2+ Poikilocytosis 3+ Anisocytosis 3+ Macrocytic Cells 3+ PUBS MCHC (33.0 - 37.0 G/DL) 33.8 Serology HIV 1&2 Ab Western Blot (NONREACTIVE) NONREACTIVE 01/25 Coagulation PT (9.4 - 12.5 SEC) 11.2 INR (0.90 - 1.19) 1.07 APTT (25 - 37 SEC) 28 Toxicology Urine Opiates Screen (>2000 NG/ML) < 100.00 Methadone Screen (>300 NG/ML) < 40 Barbiturate Screen (>200 NG/ML) < 60 Ur Phencyclidine Scrn (>25 NG/ML) < 6.00 Amphetamines Screen (>1000 NG/ML) < 100 U Benzodiazepines Scrn (>200 NG/ML) < 85 Urine Cocaine Screen (>300 NG/ML) 668 H Urine Cannabis Screen (>50 NG/ML) < 5.00 Urines Urine Color (YEL,AMB,STR) YEL Urine Clarity (CLEAR) CLEAR Urine pH (5.0 - 8.0) 6.0 Ur Specific [place] (1.001 - 1.035) 1.020 Urine Protein (NEG,<30 MG/DL) NEG Urine Ketones (NEG) NEG Urine Nitrite (NEG) NEG Urine Bilirubin (NEG) NEG Urine Urobilinogen (0.1 - 1.0 EU/dl) >=8.0 H Ur Leukocyte Esterase (NEG) TRACE H Ur Microscopic SEDIMENT EXAMINED Urine RBC (0 - 5 /HPF) RARE Urine WBC (0 - 2 /HPF) 1-3 H Ur Epithelial Cells (NONE,FEW) FEW Urine Bacteria (NEG/NONE) RARE H Urine Hemoglobin (NEG) NEG Urine Glucose (N MG/DL) NEG Urine Test NEGATIVE 01/25 1900 Chemistry Sodium (137 - 145 mmol/L) 140 Potassium (3.5 - 5.1 mmol/L) 3.8 Chloride (98 - 107 mmol/L) 105 Carbon Dioxide (22 - 30 mmol/L) 25 Anion Gap (5 - 16) 10 BUN (7 - 17 mg/dL) 8 Creatinine (0.5 - 1.0 mg/dL) 0.5 Estimated GFR (>60 ml/min) > 60 BUN/Creatinine Ratio (7 - 25 %) 16.0 Glucose (65 - 99 mg/dL) 119 H Calcium (8.4 - 10.2 mg/dL) 8.5 Magnesium (1.6 - 2.3 mg/dL) 2.1 Iron (37 - 170 ug/dL) 218 H TIBC (265 - 497 ug/dL) 333 Ferritin (6.24 - 137 ng/mL) 50.6 Total Bilirubin (0.2 - 1.3 mg/dL) 1.4 H Direct Bilirubin (< 0.4 mg/dL) 0.3 AST (14 - 36 U/L) 62 H ALT (9 - 52 U/L) 49 Alkaline Phosphatase (<127 U/L) 75 Troponin I (< 0.11 ng/ml) < 0.01 Total Protein (6.3 - 8.2 g/dL) 6.7 Albumin (3.5 - 5.0 g/dL) 4.0 Globulin (1.9 - 4.2 gm/dL) 2.7 Albumin/Globulin Ratio (1.1 - 2.2 %) 1.5 Amylase (30 - 110 U/L) 42 Lipase (23 - 300 U/L) 87 Vitamin B12 (239 - 931 pg/mL) < 159 L 25-OH Vitamin D Total (30 - 100 ng/ml) 10.9 L Folate (2.76 - 20.0 ng/mL) 11.6 Hematology CBC w Diff NO MAN DIFF REQ WBC (4.8 - 10.8 /CUMM) 2.5 L RBC (4.20 - 5.40 /CUMM) 1.52 L Hgb (12.0 - 16.0 G/DL) 5.6 *L Hct (37 - 47 %) 16.5 *L MCV (81.0 - 99.0 FL) 108.2 H MCH (27.0 - 31.0 PG) 36.6 H RDW (11.5 - 14.5 %) 42.5 H Plt Count (130 - 400 /CUMM) 190 MPV (7.4 - 10.4 FL) 8.4 Gran % (42.2 - 75.2 %) 48.9 Lymphocytes % (20.5 - 51.1 %) 49.4 Monocytes % (1.7 - 9.3 %) 1.2 L Eosinophils % (0 - 5 %) 0.3 Basophils % (0.0 - 2.0 %) 0.2 Absolute Granulocytes (1.4 - 6.5 /CUMM) 1.2 L Absolute Lymphocytes (1.2 - 3.4 /CUMM) 1.2 Absolute Monocytes (0.10 - 0.60 /CUMM) 0 L Absolute Eosinophils (0.0 - 0.7 /CUMM) 0 Absolute Basophils (0.0 - 0.2 /CUMM) 0 PUBS MCHC (33.0 - 37.0 G/DL) 33.8 Retic Count (0.5 - 2.0 %) 5.48 H Serology Lyme Disease Antibody Pending Toxicology Serum Alcohol (<10 MG/DL) < 10.0 Imaging/Other Studies: CT ABDOMEN AND PELVIS WITHOUT CONTRAST LUNG BASES: The visualized lung bases are unremarkable. LIVER, GALLBLADDER, AND BILIARY TREE: Moderate nonspecific hepatomegaly. Gallbladder not visualized. No biliary dilatation. No focal lesion. PANCREAS: Unremarkable. SPLEEN: Spleen is bulbous and enlarged measuring at least 14.4 cm. ADRENAL GLANDS: Unremarkable. KIDNEYS AND URETERS: The kidneys are normal in size, shape, and attenuation. No hydronephrosis, hydroureter, or calculi seen. No perinephric stranding. BLADDER: Unremarkable. GASTROINTESTINAL TRACT: The gastric bypass surgical changes. Anatomy limited detail. Distal Rupesh-en-Y loop anastomosis appears intact. No obstruction. Moderate stool retention. Small and large bowel are unremarkable. ABDOMINAL WALL: No significant hernia is appreciated. LYMPH NODES: There is diffuse mild lymphadenopathy throughout the retroperitoneum inguinal regions and mesentery. No pathologic enlargement. VASCULAR: Unremarkable. PELVIC VISCERA: Unremarkable. OSSEOUS STRUCTURES: Unremarkable. IMPRESSION: Diffuse mild lymphadenopathy without significant progression or regression. Nonspecific hepatosplenomegaly. No bowel pathology acutely. Once again this is nonspecific but lymphoproliferative disorder should be considered as previously suggested. No stones or obstructive uropathy. Assessment/Plan Assessment/Recommendations: 1. Anemia. Predominantly secondary to B12 deficiency, although may have other nutritional components. No current evidence of GI bleeding (surprisingly not iron deficient, Hemoccult negative). Weakness and paresthesias certainly attributable to B12 deficiency; there may be an irreversible component to neuropathy. 2. Malnutrition status post Rupesh-en-Y gastric bypass. Risks include deficiencies in iron, calcium, thiamine, B12, folate, fat-soluble vitamins (A, D , E, K), selenium, zinc, copper, trace elements, etc. 3. Cirrhosis secondary to BOURGEOIS, compensated. No ascites, encephalopathy, jaundice, thrombocytopenia, or coagulopathy. 4. Epigastric pain. Rule out esophagitis, anastomotic ulcer, dumping, adhesions/internal hernia, etc. there certainly may be component of cocaine use. Upper GI previously showed reflux of barium into the pancreaticobiliary limb, of unclear significance. 5. Right upper quadrant pain. This seems to be musculoskeletal/abdominal wall. 6. Intra-abdominal lymphadenopathy. HIV negative, PPD pending. Splenomegaly likely secondary to cirrhosis/portal hypertension. Recommendations * Hematology evaluation pending. The patient has seen Dr. Katz previously * Check thiamine and copper levels, carotene, alpha-fetoprotein * B12 supplementation (parenteral until normal value, and then oral) * Supplemental vitamin D, calcium, folate, zinc, multivitamins * Will need an EGD to rule out varices, assess pain. * Fingerstick glucose with postprandial symptoms such as diaphoresis, anxiety, somnolence * Psychiatry evaluation concerning continuing cocaine abuse. * Consider bariatric surgery consultation to address significance of upper GI findings to abdominal pain (specifically, reflux of barium into pancreatobiliary limb). In addition, they can comment on any other pertinent post bariatric issues. The patient previously saw Shoaib Reddy MD. Thank you very much for this consultation. Dr. Segura will resume the patient's gastroenterology care. Copies To: JESSICA OLIVO,JAIME; JAILENE OLIVO,ANICETO [place]; BRITTNY SEGURA MD Consult Acknowledgment - Thank you for your consult request.
--- NOTE | 2017-01-26 11:30 | NUR ---
LATE ENTRY: PT'S H/H BACK- 7.1/21.0 AFTER RECEIVING 2 UNITS OF BLOOD OVERNIGHT. DR. CHOE UPDATED- PER , NO NEED FOR ANY FURTHER BLOOD TRANSFUSIONS AT THIS POINT. PT STABLE. NO ACUTE DISTRESS. WILL CONT TO MONITOR.
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
[2017-01-26 14:14] VITALS: BP 130/71
--- NOTE | 2017-01-26 15:28 | NUR ---
LATE ENTRY: LAB CONTACTED FLOOR R/T ADD ON LAB ORDERS NEEDING AUTHORIZATION FROM PATHOLOGIST WHO WILL BE IN TOMORROW AT 8 AM. [employer] OPERATOR SRIDHAR NOTIFIED. SNO FOR RESCHEDULING OF LAB ADD ON ORDERS FOR TOMORROW AT 8:30 AM. RN CYNDY NOTIFIED OF CHANGE. PT UPDATED. SAFETY MAINTAINED. EVENING RN TO RESUME CARE FOR PT.
[2017-01-26 16:20] VITALS: BP 138/84
[2017-01-26 18:08] LABS: ABSOLUTE BASOPHIL COUNT 0 /CUMM (0.0-0.2); ABSOLUTE EOSINOPHIL COUNT 0 /CUMM (0.0-0.7); ABSOLUTE GRANULOCYTE CT 1.4 /CUMM (1.4-6.5); ABSOLUTE LYMPH COUNT 1.4 /CUMM (1.2-3.4); ABSOLUTE MONOCYTE COUNT 0 /CUMM (0.10-0.60); BASOPHIL % 0.5 % (0.0-2.0); EOSINOPHIL % 0.2 % (0-5); MEAN CORPUSCULAR HGB 34.1 PG (27.0-31.0); MEAN CORPUSCULAR HGB CONC 33.3 G/DL (33.0-37.0); MEAN CORPUSCULAR VOLUME 102.3 FL (81.0-99.0); MEAN PLATELET VOLUME 8.7 FL (7.4-10.4); PLATELET COUNT 159 /CUMM (130-400); RBC DISTRIBUTION WIDTH 33.9 % (11.5-14.5); RED BLOOD CELL CT 2.12 /CUMM (4.20-5.40); WHITE BLOOD CELL COUNT 2.8 /CUMM (4.8-10.8)
[2017-01-26 18:34] LABS: HEMATOCRIT 21.7 % (37-47)
[2017-01-26 18:35] LABS: GRANULOCYTE % 49.3 % (42.2-75.2)
[2017-01-26 23:33] VITALS: BP 130/62
--- NOTE | 2017-01-27 05:35 | NUR ---
LATE ENTRY NURSING NOTE: PATIENT C/O "ACHING PAIN" IN HER LEFT ARM, STATES "I THINK ITS FROM MY IV." (IV IS CURRENTLY IN LAC). WARM COMPRESS APPLIED, IV FLUSHES WITHOUT PROBLEMS. SHE ALSO REPORTS NUMBESS IN HER HANDS THAT IS NOT NEW. MD DIOP 394 MADE AWARE; ASSESSED PATIENT AT BEDSIDE. NO FURTHER ORDERS AT THIS TIME, WILL CONTINUE TO MONITOR AND ATTEMPT NEW IV PLACEMENT IF NECESSARY. SAFETY MAINTAINED, NEEDS IN REACH.
[2017-01-27 06:57] VITALS: BP 134/76
--- NOTE | 2017-01-27 07:17 | Cons- Hematology ---
General Information and HPI Consulting Request Date of Consult: 01/27/17 Requested By: ELIZ CONTE MD History of Present Illness: 31-year-old woman seen in the past for vitamin B12 deficiency now admitted markedly abnormal hemogram. Patient is status post bariatric surgery may have underlying cirrhosis with previously documented with profound vitamin B12 deficiency.. Patient was noncompliant and return visits to my office. She has received no parenteral supplementation. Patient has essentially positive review of systems. Allergies/Medications Allergies: Coded Allergies: doxycycline (Intermediate, GI DISTRESS 10/11/15) Iodinated Contrast- Oral and IV Dye (IODINATED CONTRAST MEDIA - IV DYE) (HIVES, ITCHY, PHOTOSENSITIVE 10/11/15) Penicillins (GI DISTRESS 10/11/15) aspirin (AVOIDS 10/11/15) cortisone (SWELLING IN KNEES, FEVER 10/11/15) acetaminophen (Intermediate, LIVER DISEASE 10/11/15) shellfish derived (Intermediate, HIVES 10/11/15) morphine (Mild, NAUSEA 10/11/15) hydrocodone (LIVER PAIN 10/11/15) Home Med List: Hyoscyamine (Levsin) 0.125 MG TABLET 1-2 TAB PO Q6P PRN ABDOMINAL CRAMPS Hyoscyamine (Levsin) 0.125 MG TABLET 1 TAB PO Q4 PRN ABDOMINAL SPASMS Promethazine HCl 25 MG TABLET 1 TAB PO Q6P PRN NAUSEA/VOMITING Current Medications: Current Medications Sig/Josr Start time Last Medication Dose Route Stop Time Status Admin Calcium 600 MG DAILY 01/27 1000 AC PO Cholecalciferol 400 IU DAILY 01/26 1000 AC 01/26 PO 0957 Cyanocobalamin 1,000 MCG ONCE ONE 01/27 1000 AC IM 01/27 1001 Cyanocobalamin 1,000 MCG DAILY 01/26 1309 DC 01/26 PO 1451 Diphenhydramine HCl 25 MG AT BEDTIME PRN 01/26 0100 AC 01/27 PO 0026 Lidocaine 1 PAT DAILY 01/26 1128 AC 01/26 EXT 1230 Multivitamins 1 TAB DAILY 01/26 1309 AC 01/26 PO 1450 Ondansetron HCl 4 MG ONCE ONE 01/26 1645 DC 01/26 PO 01/26 1646 1659 Oxycodone HCl 5 MG Q6P PRN 01/26 1130 AC 07/10 PO 0517 Simethicone 80 MG ONCE ONE 01/26 2130 DC 01/26 PO 01/26 2131 2126 Valacyclovir HCl 500 MG 2200 01/26 2200 AC 01/26 PO 2126 Zinc Sulfate 220 MG DAILY 01/26 1309 AC 01/26 PO 1450 Review of Systems Review of Systems: Patient denies fevers complains of sweating episodes. She complains of headaches. Patient complains of productive cough without hemoptysis. Patient does complain of chest pain. She complains of nausea vomiting abdominal pain. Complains of dysuria. Patient complains of diffuse bone pain and weakness. She complains of paresthesias. Past History Travel History Traveled to [place] past 21 day No Medical History Gastrointestinal: rupesh-en-Y gastric bypass with dumping syndrome morbid obesity Hepatic: fatty liver with cirrhosis Psychiatric: anxiety, bipolar disease, depression, MANIC DEPRESSION PTSD Blood Disorders: anemia MEDIA RELATIONS DIRECTOR/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 Exam & Diagnostic Data Vital Signs and I&O Vital Signs Date Time Temp Pulse Resp B/P B/P Pulse O2 O2 Flow FiO2 Mean Ox Delivery Rate 01/27 0657 98.3 73 20 134/76 98 01/26 2333 98.0 76 20 130/62 98 Room Air 01/26 1620 98.8 67 20 138/84 98 Room Air 01/26 1414 99.3 80 20 130/71 98 Room Air 01/26 0719 98.2 96 20 148/70 98 Intake & Output 01/27 0800 01/27 0000 01/26 1600 Intake Total 600 380 Output Total 100 Balance 500 380 Intake, IV 30 Intake, Oral 600 350 Number 1 Bowel Movements Output, 100 Emesis Gen.: in NAD ENT: Sclera anicteric Chest: Normal respiratory effort, decreased breath sounds Cor: RRR, no extra sounds Abdomen: Soft, bowel sounds present, no significant tenderness, no rebound Extremities: Without clubbing, cyanosis, or asymmetric edema Neurology: Alert and oriented 3, no gross deficit, no sensory level Skin: No rashes Last 48 Hours of Lab Results: Laboratory Tests 01/26 01/26 1706 1706 Chemistry Lactate Dehydrogenase (313 - 618 U/L) 7166 H Hematology CBC w Diff NO MAN DIFF REQ WBC (4.8 - 10.8 /CUMM) 2.8 L RBC (4.20 - 5.40 /CUMM) 2.12 L Hgb (12.0 - 16.0 G/DL) 7.2 *L Hct (37 - 47 %) 21.7 L MCV (81.0 - 99.0 FL) 102.3 H MCH (27.0 - 31.0 PG) 34.1 H RDW (11.5 - 14.5 %) 33.9 H Plt Count (130 - 400 /CUMM) 159 MPV (7.4 - 10.4 FL) 8.7 Gran % (42.2 - 75.2 %) 49.3 Lymphocytes % (20.5 - 51.1 %) 48.5 Monocytes % (1.7 - 9.3 %) 1.5 L Eosinophils % (0 - 5 %) 0.2 Basophils % (0.0 - 2.0 %) 0.5 Absolute Granulocytes (1.4 - 6.5 /CUMM) 1.4 Absolute Lymphocytes (1.2 - 3.4 /CUMM) 1.4 Absolute Monocytes (0.10 - 0.60 /CUMM) 0 L Absolute Eosinophils (0.0 - 0.7 /CUMM) 0 Absolute Basophils (0.0 - 0.2 /CUMM) 0 PUBS MCHC (33.0 - 37.0 G/DL) 33.3 Haptoglobin Pending 01/26 01/26 01/26 0630 0115 0115 Chemistry Sodium (137 - 145 mmol/L) 142 Potassium (3.5 - 5.1 mmol/L) 3.9 Chloride (98 - 107 mmol/L) 108 H Carbon Dioxide (22 - 30 mmol/L) 28 Anion Gap (5 - 16) 6 BUN (7 - 17 mg/dL) 8 Creatinine (0.5 - 1.0 mg/dL) 0.5 Estimated GFR (>60 ml/min) > 60 BUN/Creatinine Ratio (7 - 25 %) 16.0 Troponin I (< 0.11 ng/ml) < 0.01 Alpha Fetoprotein Cancelled TSH (0.270 - 4.200 uIU/mL) 1.660 Hematology CBC w Diff MAN DIFF ORDERED WBC (4.8 - 10.8 /CUMM) 2.9 L RBC (4.20 - 5.40 /CUMM) 2.04 L Hgb (12.0 - 16.0 G/DL) 7.1 *L Hct (37 - 47 %) 21.0 L MCV (81.0 - 99.0 FL) 103.0 H MCH (27.0 - 31.0 PG) 34.8 H RDW (11.5 - 14.5 %) 33.7 H Plt Count (130 - 400 /CUMM) 169 MPV (7.4 - 10.4 FL) 9.0 Gran % (42.2 - 75.2 %) 42.2 Lymphocytes % (20.5 - 51.1 %) 56.0 H Monocytes % (1.7 - 9.3 %) 1.2 L Eosinophils % (0 - 5 %) 0.5 Basophils % (0.0 - 2.0 %) 0.1 Absolute Granulocytes (1.4 - 6.5 /CUMM) 1.2 L Absolute Lymphocytes (1.2 - 3.4 /CUMM) 1.6 Absolute Monocytes (0.10 - 0.60 /CUMM) 0 L Absolute Eosinophils (0.0 - 0.7 /CUMM) 0 Absolute Basophils (0.0 - 0.2 /CUMM) 0 Polychromasia 1+ Hypochromic-Microcytic 2+ Poikilocytosis 3+ Anisocytosis 3+ Macrocytic Cells 3+ PUBS MCHC (33.0 - 37.0 G/DL) 33.8 Serology HIV 1&2 Ab Western Blot (NONREACTIVE) NONREACTIVE 01/25 195 Coagulation PT (9.4 - 12.5 SEC) 11.2 INR (0.90 - 1.19) 1.07 APTT (25 - 37 SEC) 28 Toxicology Urine Opiates Screen (>2000 NG/ML) < 100.00 Methadone Screen (>300 NG/ML) < 40 Barbiturate Screen (>200 NG/ML) < 60 Ur Phencyclidine Scrn (>25 NG/ML) < 6.00 Amphetamines Screen (>1000 NG/ML) < 100 U Benzodiazepines Scrn (>200 NG/ML) < 85 Urine Cocaine Screen (>300 NG/ML) 668 H Urine Cannabis Screen (>50 NG/ML) < 5.00 Urines Urine Color (YEL,AMB,STR) YEL Urine Clarity (CLEAR) CLEAR Urine pH (5.0 - 8.0) 6.0 Ur Specific [place] (1.001 - 1.035) 1.020 Urine Protein (NEG,<30 MG/DL) NEG Urine Ketones (NEG) NEG Urine Nitrite (NEG) NEG Urine Bilirubin (NEG) NEG Urine Urobilinogen (0.1 - 1.0 EU/dl) >=8.0 H Ur Leukocyte Esterase (NEG) TRACE H Ur Microscopic SEDIMENT EXAMINED Urine RBC (0 - 5 /HPF) RARE Urine WBC (0 - 2 /HPF) 1-3 H Ur Epithelial Cells (NONE,FEW) FEW Urine Bacteria (NEG/NONE) RARE H Urine Hemoglobin (NEG) NEG Urine Glucose (N MG/DL) NEG Urine Test NEGATIVE 01/25 1900 Chemistry Sodium (137 - 145 mmol/L) 140 Potassium (3.5 - 5.1 mmol/L) 3.8 Chloride (98 - 107 mmol/L) 105 Carbon Dioxide (22 - 30 mmol/L) 25 Anion Gap (5 - 16) 10 BUN (7 - 17 mg/dL) 8 Creatinine (0.5 - 1.0 mg/dL) 0.5 Estimated GFR (>60 ml/min) > 60 BUN/Creatinine Ratio (7 - 25 %) 16.0 Glucose (65 - 99 mg/dL) 119 H Calcium (8.4 - 10.2 mg/dL) 8.5 Magnesium (1.6 - 2.3 mg/dL) 2.1 Iron (37 - 170 ug/dL) 218 H TIBC (265 - 497 ug/dL) 333 Ferritin (6.24 - 137 ng/mL) 50.6 Total Bilirubin (0.2 - 1.3 mg/dL) 1.4 H Direct Bilirubin (< 0.4 mg/dL) 0.3 AST (14 - 36 U/L) 62 H ALT (9 - 52 U/L) 49 Alkaline Phosphatase (<127 U/L) 75 Troponin I (< 0.11 ng/ml) < 0.01 Total Protein (6.3 - 8.2 g/dL) 6.7 Albumin (3.5 - 5.0 g/dL) 4.0 Globulin (1.9 - 4.2 gm/dL) 2.7 Albumin/Globulin Ratio (1.1 - 2.2 %) 1.5 Amylase (30 - 110 U/L) 42 Lipase (23 - 300 U/L) 87 Vitamin B12 (239 - 931 pg/mL) < 159 L 25-OH Vitamin D Total (30 - 100 ng/ml) 10.9 L Folate (2.76 - 20.0 ng/mL) 11.6 Hematology CBC w Diff NO MAN DIFF REQ WBC (4.8 - 10.8 /CUMM) 2.5 L RBC (4.20 - 5.40 /CUMM) 1.52 L Hgb (12.0 - 16.0 G/DL) 5.6 *L Hct (37 - 47 %) 16.5 *L MCV (81.0 - 99.0 FL) 108.2 H MCH (27.0 - 31.0 PG) 36.6 H RDW (11.5 - 14.5 %) 42.5 H Plt Count (130 - 400 /CUMM) 190 MPV (7.4 - 10.4 FL) 8.4 Gran % (42.2 - 75.2 %) 48.9 Lymphocytes % (20.5 - 51.1 %) 49.4 Monocytes % (1.7 - 9.3 %) 1.2 L Eosinophils % (0 - 5 %) 0.3 Basophils % (0.0 - 2.0 %) 0.2 Absolute Granulocytes (1.4 - 6.5 /CUMM) 1.2 L Absolute Lymphocytes (1.2 - 3.4 /CUMM) 1.2 Absolute Monocytes (0.10 - 0.60 /CUMM) 0 L Absolute Eosinophils (0.0 - 0.7 /CUMM) 0 Absolute Basophils (0.0 - 0.2 /CUMM) 0 PUBS MCHC (33.0 - 37.0 G/DL) 33.8 Retic Count (0.5 - 2.0 %) 5.48 H Serology Lyme Disease Antibody Pending Toxicology Serum Alcohol (<10 MG/DL) < 10.0 Imaging/Other Studies: Chest x-ray-to active disease CAT scan-abdomen and pelvis-chronic splenomegaly, asymmetric left ovary, prominent but not enlarged lymphadenopathy Assessment/Plan Assessment: 1. Pancytopenia-presumably on the basis of vitamin D 12 deficiency in the setting of prior bariatric surgery. The presumption is that the patient has malabsorption of vitamin B12. As per gastroenterology, cirrhosis may be present also contributing to her pancytopenia. Recommend- Parenteral vitamin B12 replacement, she will not likely absorb oral vitamin B12 Further workup as per gastroenterology service 2. Prominent lymphadenopathy/splenomegaly-CT scan shows stability with regard to her lymph nodes without significant enlargement. Patient's LDH elevation in bilirubin elevation to be secondary to her vitamin B12 deficiency not related to lymphoproliferative disorder. At this juncture, I would not pursue a lymph node biopsy or a bone marrow. 3. Substance abuse 4. Adnexal abnormality Recommendations: .. Consult Acknowledgment - Thank you for your consult request.
[2017-01-27 08:16] LABS: ABSOLUTE BASOPHIL COUNT 0 /CUMM (0.0-0.2); ABSOLUTE EOSINOPHIL COUNT 0 /CUMM (0.0-0.7); ABSOLUTE GRANULOCYTE CT 1.1 /CUMM (1.4-6.5); ABSOLUTE LYMPH COUNT 1.5 /CUMM (1.2-3.4); ABSOLUTE MONOCYTE COUNT 0.1 /CUMM (0.10-0.60); EOSINOPHIL % 0.4 % (0-5)
[2017-01-27 08:44] LABS: BASOPHIL % 0.4 % (0.0-2.0); GRANULOCYTE % 41.4 % (42.2-75.2); MEAN CORPUSCULAR HGB 34.1 PG (27.0-31.0); MEAN CORPUSCULAR HGB CONC 33.4 G/DL (33.0-37.0); MEAN CORPUSCULAR VOLUME 102.2 FL (81.0-99.0); MEAN PLATELET VOLUME 8.3 FL (7.4-10.4); PLATELET COUNT 144 /CUMM (130-400); RBC DISTRIBUTION WIDTH 33.6 % (11.5-14.5); WHITE BLOOD CELL COUNT 2.7 /CUMM (4.8-10.8)
[2017-01-27 09:05] LABS: HEMATOCRIT 21.5 % (37-47)
--- NOTE | 2017-01-27 11:57 | PN- Housestaff ---
TRISHA OLIVO,ANTONIO 01/27/17 1156: Subjective Follow-up For: Symptomatic anemia Subjective: I saw and examined the patient this morning. States she feels tired, has pain everywhere in bones. States she is depressed and anxious. Has numbness and tingling in her fingers. States she has pain in both hands which she previously thought was carpal tunnel as she uses a computer often. Tried splints with no relief. Did not take B12 in the past because the first time she took it, it made her feel bad. Pt felt nauseous and vomitted yesterday after eating. Denies hematemesis. Emesis was clear liquid with food particles and meds she had taken. Denies hematochezia. Denies SOB, dizziness, lightheadedness, chest pain, palpitations, fever, chills. Review of Systems Constitutional: Reports: see HPI, malaise, weakness. Objective Last 24 Hrs of Vital Signs/I&O Vital Signs Date Time Temp Pulse Resp B/P B/P Pulse O2 O2 Flow FiO2 Mean Ox Delivery Rate 01/27 1447 97.9 56 20 130/70 99 Room Air 01/27 0657 98.3 73 20 134/76 98 01/26 2333 98.0 76 20 130/62 98 Room Air Intake & Output 01/27 1600 01/27 0800 01/27 0000 Intake Total 30 20 600 Output Total 100 Balance 30 20 500 Intake, IV 20 Intake, Oral 30 0 600 Number 0 Bowel Movements Output, 100 Emesis Physical Exam General Appearance: Alert, Oriented X3, Cooperative, No Acute Distress Cardiovascular: Regular Rate, Normal S1, Normal S2 Lungs: Clear to Auscultation Abdomen: Normal Bowel Sounds, Soft, No Tenderness Extremities: Normal Pulses, No Tenderness/Swelling Assessment/Plan Assessment: Ms Flores is a 31-year-old female who was presented to the emergency department complaining of weakness and upper extremity pain. She does have a history of Kaci-en-Y bypass done in 2005 has not been taking by mouth PO supplements over the last few months. Will admit the patient to general medicine service 1. Symptomatic anemia * most likely 2/2 vitamin B-12 deficiency given macrocytosis and neurologic manifestations * S/P 2 units of PRBCs. Target H/H > 7.0 and 21. * Today: 7.2/21.5, repeat CBC in evening after EGD, transfuse if <7 * EGD: grossly normal gastric bypass anatomy with a small puch approximate 4-5cm in length post biopsies of the gastric pouch and jejunum * GI consulted and appreciate recommendations: - Check thiamine and copper levels, carotene, alpha-fetoprotein - recheck with pathology lab tomorrow AM-must be preapproved. - B12 supplementation, Supplemental vitamin D, calcium, folate, zinc, multivitamins - s/p EGD: - outpatient follow up with Dr. Segura for pathology results - consider PPI/ H2 felipe * Fingerstick glucose with postprandial symptoms such as diaphoresis, anxiety, somnolence. Consider bariatric surgery consultation to address significance of upper GI findings to abdominal pain (specifically, reflux of barium into pancreatobiliary limb). 2. Pancytopenia, splenomegaly and mild lymphadenopathy * CT: Diffuse mild lymphadenopathy without significant progression or regression. Nonspecific hepatosplenomegaly. * Hematology consult appreciated: As per Dr. Katz - pancytopenia likely due to b12 deficiency and per GI: due to fatty liver cirrhosis - parenteral vit b12 replacement - lymphadenopathy/splenomegaly due to vit B12 deficiency - will not pursue LN biopsy/BM biopsy at this time 3. History of substance abuse (cocaine) and risky behavior * Psych. 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 HSV-1 infection 2. Liver cirrhosis 3. Symptomatic anemia Pain Ratin Pain Location: as per pt: throughout her entire body Pain Goal: Pain 4 or less Pain Plan: oxycodone 5mg q6h PRN lidocaine patch daily Tomorrow's Labs & Rationales: CBC BEP GRISELDA OLIVO,FREDRICK 01/27/17 1314: Attending MD Review Statement Attending Statement Attending MD Statement: examined this patient, discuss w/resident/PA/BOBBIN CLEANER, agreed w/resident/PA/BOBBIN CLEANER, reviewed EMR data (avail), discussed with nursing, discussed with case mgmt, reviewed images, amended to note Attending Assessment/Plan: Patient seen and examined, still has the same complains about feeling tingling in her hands, having aches and pains in her shoulders and muscles. H&H is relatively stable after transfusion. Vital Signs Date Time Temp Pulse Resp B/P B/P Pulse O2 O2 Flow FiO2 Mean Ox Delivery Rate 01/27 0657 98.3 73 20 134/76 98 01/26 2333 98.0 76 20 130/62 98 Room Air 01/26 1620 98.8 67 20 138/84 98 Room Air 01/26 1414 99.3 80 20 130/71 98 Room Air on exam: aox3, nad. cv; s1, s2, rrr resp; clear abd; soft, nt, bs+ ext; no edema. Laboratory Tests 01/27 Chemistry Sodium (137 - 145 mmol/L) 138 Potassium (3.5 - 5.1 mmol/L) 4.1 Chloride (98 - 107 mmol/L) 102 Carbon Dioxide (22 - 30 mmol/L) 32 H Anion Gap (5 - 16) 4 L BUN (7 - 17 mg/dL) 6 L Creatinine (0.5 - 1.0 mg/dL) 0.5 Estimated GFR (>60 ml/min) > 60 BUN/Creatinine Ratio (7 - 25 %) 12.0 Total Bilirubin (0.2 - 1.3 mg/dL) Pending Lactate Dehydrogenase (313 - 618 U/L) Cancelled 7142 H Alpha Fetoprotein Pending Hematology CBC w Diff MAN DIFF ORDERED WBC (4.8 - 10.8 /CUMM) 2.7 L RBC (4.20 - 5.40 /CUMM) 2.10 L Hgb (12.0 - 16.0 G/DL) 7.2 *L Hct (37 - 47 %) 21.5 L MCV (81.0 - 99.0 FL) 102.2 H MCH (27.0 - 31.0 PG) 34.1 H RDW (11.5 - 14.5 %) 33.6 H Plt Count (130 - 400 /CUMM) 144 MPV (7.4 - 10.4 FL) 8.3 Gran % (42.2 - 75.2 %) 41.4 L Lymphocytes % (20.5 - 51.1 %) 55.5 H Monocytes % (1.7 - 9.3 %) 2.3 Eosinophils % (0 - 5 %) 0.4 Basophils % (0.0 - 2.0 %) 0.4 Absolute Granulocytes (1.4 - 6.5 /CUMM) 1.1 L Segmented Neutrophils (42.2 - 75.2 %) Pending Absolute Lymphocytes (1.2 - 3.4 /CUMM) 1.5 Absolute Monocytes (0.10 - 0.60 /CUMM) 0.1 L Absolute Eosinophils (0.0 - 0.7 /CUMM) 0 Absolute Basophils (0.0 - 0.2 /CUMM) 0 PUBS MCHC (33.0 - 37.0 G/DL) 33.4 Retic Count (0.5 - 2.0 %) Pending Haptoglobin Pending 01/26 01/26 1706 1706 Chemistry Lactate Dehydrogenase (313 - 618 U/L) 7166 H Hematology CBC w Diff NO MAN DIFF REQ WBC (4.8 - 10.8 /CUMM) 2.8 L RBC (4.20 - 5.40 /CUMM) 2.12 L Hgb (12.0 - 16.0 G/DL) 7.2 *L Hct (37 - 47 %) 21.7 L MCV (81.0 - 99.0 FL) 102.3 H MCH (27.0 - 31.0 PG) 34.1 H RDW (11.5 - 14.5 %) 33.9 H Plt Count (130 - 400 /CUMM) 159 MPV (7.4 - 10.4 FL) 8.7 Gran % (42.2 - 75.2 %) 49.3 Lymphocytes % (20.5 - 51.1 %) 48.5 Monocytes % (1.7 - 9.3 %) 1.5 L Eosinophils % (0 - 5 %) 0.2 Basophils % (0.0 - 2.0 %) 0.5 Absolute Granulocytes (1.4 - 6.5 /CUMM) 1.4 Absolute Lymphocytes (1.2 - 3.4 /CUMM) 1.4 Absolute Monocytes (0.10 - 0.60 /CUMM) 0 L Absolute Eosinophils (0.0 - 0.7 /CUMM) 0 Absolute Basophils (0.0 - 0.2 /CUMM) 0 PUBS MCHC (33.0 - 37.0 G/DL) 33.3 Haptoglobin Pending A/P: 31 y/o F with pmh sig for ch anemia, obesity with fatty liver cirrhosis, Kaci-en-Y gastric bypass, anxiety, bipolar disorder, depression, PTSD is admitted with acute on chronic anemia. Patient is guaiac negative. She is found to have significant amount of vitamin B12 deficiency as well as generalized lymphadenopathy on imaging. Patient is scheduled for endoscopy today per GI. Will repeat check her H&H later today and if it drops further then she will need another unit of transfusion. Patient is getting parenteral vitamin B12 repletion. Appreciate oncology input, no plan to do a lymph node biopsy at this time per oncology. Patient on Valtrex for chronic suppressive therapy for HSV. DVT Px; Ambulation/ ALPS.
--- NOTE | 2017-01-27 14:10 | NUR ---
PT RETURNED TO FLOOR FROM GI, A/OX3, ROOM AIR, READY FOR REGULAR DIET, VSS, WILL CONTINUE TO MONITOR.
[2017-01-27 14:47] VITALS: BP 130/70
--- NOTE | 2017-01-27 14:58 | NUR ---
PT LEFT FLOOR WITH DISTRIBUTION IN [facility] FOR UPPER ENDOSCOPY, NPO SINCE MIDNIGHT, VSS, A/OX3, ROOM AIR, WILL AWAIT RETURN TO FLOOR.
--- NOTE | 2017-01-27 15:24 | PN- Student ---
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 Patient was tranfused with 2PRBC and H+H went up to 7.1/21.0. This morning patient is still experiencing fatigue, muscle soreness in upper extremiities, tingling sensation in both hands, bone pain, night sweats and generalized weakness. Patient denies SOB, Chest pain, hematuria, Blood in stools, vomits or coughing blood. Patient has a history of previous blood tranfusion one year ago due to anemia. Patient states that she was no compliant with Vitamin regimen after Gastric bypass done . Medications: Current Medications Sig/Josr Start time Last Medication Dose Route Stop Time Status Admin Calcium 600 MG DAILY 01/27 1000 AC PO Cholecalciferol 400 IU DAILY 01/26 1000 AC 01/26 PO 0957 Cyanocobalamin 1,000 MCG ONCE ONE 01/27 1000 DC 01/27 IM 01/27 1001 0947 Cyanocobalamin 1,000 MCG DAILY 01/26 1309 DC 01/26 PO 1451 Diphenhydramine HCl 25 MG .STK-MED ONE 01/27 0023 DC PO 01/27 0024 Diphenhydramine HCl 25 MG AT BEDTIME PRN 01/26 0100 AC 01/27 PO 0026 Lidocaine 1 PAT DAILY 01/26 1128 AC 01/26 EXT 1230 Multivitamins 1 TAB DAILY 01/26 1309 AC 01/26 PO 1450 Ondansetron HCl 4 MG ONCE ONE 01/26 1645 DC 01/26 PO 01/26 1646 1659 Oxycodone HCl 5 MG Q6P PRN 01/26 1130 AC 01/27 PO 1120 Simethicone 80 MG ONCE ONE 01/26 2130 DC 01/26 PO 01/26 213 2126 Valacyclovir HCl 500 MG 0 01/26 2200 AC 01/26 PO 2126 Zinc Sulfate 220 MG DAILY 01/26 1309 AC 01/26 PO 1450 Review of Systems Constitutional: Reports: weakness and fatigue. EENTM: Reports: visual changes. Cardiovascular: Denies: Chest pain Respiratory: Denies: short of breath. Reports: cough with cool mucus GI: Denies: blood in stool, vomitis. Reports: abdominal pain, nausea, changes in stool. Genitourinary: Denies: hematuria, dysuria, or changes in color of urine. Musculoskeletal: Reports: back pain, muscle pain, neck pain. Neurological/Psychological: Reports: anxiety. Hematologic/Endocrine: Denies: bruising. Objective Objective: Last 24 hours Vital signs: Vital Signs Date Time Temp Pulse Resp B/P B/P Pulse O2 O2 Flow FiO2 Mean Ox Delivery Rate 01/27 0657 98.3 73 20 134/76 98 01/26 2333 98.0 76 20 130/62 98 Room Air 01/26 1620 98.8 67 20 138/84 98 Room Air 01/26 1414 99.3 80 20 130/71 98 Room Air Intake & Output 01/27 1600 01/27 0800 01/27 0000 Intake Total 20 600 Output Total 100 Balance 20 500 Intake, IV 20 Intake, Oral 0 600 Number 0 Bowel Movements Output, 100 Emesis Physical Examination: General Appearance Alert, Oriented X3, Cooperative, No distress Skin No Rashes, No Breakdown, midline lumbar tenderness, tenderness in Righ arm in bicep area, Skin Temp/Moisture Exam: Warm/Dry HEENT Atraumatic, PERRLA, EOMI Cardiovascular RRR, Normal S1, Normal S2, No Murmurs Lungs Clear to Auscultation, Normal Air Movement Abdomen: Normal abdome shape, no bruises noted, Bowel Sounds +, Soft, difuse soreness under deep palpation Neurological Cranial Nerves 3-12 intact, Sensory intact in lower extremities, dimished sensory perception in distal upper extremities, muscle strenght 4/5 in upper extremities, 5/5 in lower extrtemities. Phalen's test and Tinel's sign negative. Normal gait and posture. Extremities No Edema or Erythema, Normal Pulses in extremities X4. Diagnostic Data: Abdominal/ Pelvis CT Scan: 01/25/17 Impression: Diffuse mild lymphadenopathy without significant progression or regression. Nonspecific hepatosplenomegaly. No bowel pathology acutely. Once again this is nonspecific but lymphoproliferative disorder should be considered as previously suggested. CXR: 01/25/17 FINDINGS: No significant abnormality is noted involving the heart, lungs, mediastinum, bony thorax or soft tissues. Results Results: Laboratory Tests 01/27/17 0712: Anion Gap 4 L, Estimated GFR > 60, BUN/Creatinine Ratio 12.0, Total Bilirubin 1.6 H, Direct Bilirubin Pending, Lactate Dehydrogenase 7142 H, Haptoglobin Pending 01/27/17 0712: Alpha Fetoprotein Pending, CBC w Diff MAN DIFF ORDERED, RBC 2.10 L, MCV 102.2 H, MCH 34.1 H, RDW 33.6 H, MPV 8.3, Gran % 41.4 L, Lymphocytes % 55.5 H, Monocytes % 2.3, Eosinophils % 0.4, Basophils % 0.4, Absolute Granulocytes 1.1 L, Segmented Neutrophils 36 L, Absolute Lymphocytes 1.5, Lymphocytes 57 H, Monocytes 7, Absolute Monocytes 0.1 L, Absolute Eosinophils 0, Absolute Basophils 0, Nucleated RBCs 1 H, Polychromasia 1+, Poikilocytosis 1+, Basophilic Stippling , Anisocytosis 2+, Microcytic Cells 1+, Macrocytic Cells 1+, PUBS MCHC 33.4, Retic Count Pending 01/26/17 1706: Haptoglobin Pending 01/26/17 1706: Lactate Dehydrogenase 7166 H, CBC w Diff NO MAN DIFF REQ, RBC 2.12 L, MCV 102.3 H, MCH 34.1 H, RDW 33.9 H, MPV 8.7, Gran % 49.3, Lymphocytes % 48.5, Monocytes % 1.5 L, Eosinophils % 0.2, Basophils % 0.5, Absolute Granulocytes 1.4, Absolute Lymphocytes 1.4, Absolute Monocytes 0 L, Absolute Eosinophils 0, Absolute Basophils 0, PUBS MCHC 33.3 01/26/17 0630: Anion Gap 6, Estimated GFR > 60, BUN/Creatinine Ratio 16.0, CBC w Diff MAN DIFF ORDERED, RBC 2.04 L, MCV 103.0 H, MCH 34.8 H, RDW 33.7 H, MPV 9.0, Gran % 42.2, Lymphocytes % 56.0 H, Monocytes % 1.2 L, Eosinophils % 0.5, Basophils % 0.1, Absolute Granulocytes 1.2 L, Absolute Lymphocytes 1.6, Absolute Monocytes 0 L, Absolute Eosinophils 0, Absolute Basophils 0, Polychromasia 1+, Hypochromic-Microcytic 2+, Poikilocytosis 3+, Anisocytosis 3+, Macrocytic Cells 3+, PUBS MCHC 33.8, HIV 1&2 Ab Western Blot NONREACTIVE 01/26/175: Troponin I < 0.01, TSH 1.660 01/26/17114: Alpha Fetoprotein Cancelled 01/25/172049: Urine Opiates Screen < 100.00, Methadone Screen < 40, Barbiturate Screen < 60, Ur Phencyclidine Scrn < 6.00, Amphetamines Screen < 100, U Benzodiazepines Scrn < 85, Urine Cocaine Screen 668 H, Urine Cannabis Screen < 5.00, Urine Color YEL , Urine Clarity CLEAR, Urine pH 6.0, Ur Specific Denhoff 1.020, Urine Protein NEG, Urine Ketones NEG, Urine Nitrite NEG, Urine Bilirubin NEG, Urine Urobilinogen >=8.0 H, Ur Leukocyte Esterase TRACE H, Ur Microscopic SEDIMENT EXAMINED, Urine RBC RARE, Urine WBC 1-3 H, Ur Epithelial Cells FEW, Urine Bacteria RARE H, Urine Hemoglobin NEG, Urine Glucose NEG, Urine Test NEGATIVE 01/25/171953: PT 11.2, INR 1.07, APTT 28 01/25/17 1900: Anion Gap 10, Estimated GFR > 60, BUN/Creatinine Ratio 16.0, Glucose 119 H, Calcium 8.5, Magnesium 2.1, Iron 218 H, TIBC 333, Ferritin 50.6, Total Bilirubin 1.4 H, Direct Bilirubin 0.3, AST 62 H, ALT 49, Alkaline Phosphatase 75, Troponin I < 0.01, Total Protein 6.7, Albumin 4.0, Globulin 2.7, Albumin/ Globulin Ratio 1.5, Amylase 42, Lipase 87, Vitamin B12 < 159 L, 25-OH Vitamin D Total 10.9 L, Folate 11.6, CBC w Diff NO MAN DIFF REQ, RBC 1.52 L, MCV 108.2 H, MCH 36.6 H, RDW 42.5 H, MPV 8.4, Gran % 48.9, Lymphocytes % 49.4, Monocytes % 1.2 L, Eosinophils % 0.3, Basophils % 0.2, Absolute Granulocytes 1.2 L, Absolute Lymphocytes 1.2, Absolute Monocytes 0 L, Absolute Eosinophils 0, Absolute Basophils 0, PUBS MCHC 33.8, Retic Count 5.48 H, Lyme Disease Antibody 0.41, Serum Alcohol < 10.0 Assessment/Plan Assessment: Assesment: Patient is a 31 y-o female, who came to ER due to severe anemic state with a history of Chronic anemia, Chronic Cirrhosis, 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 Patient is experiencing fatigue, tingling sensation on both hands, muscle soreness and generalize weakness. Patient is presenting a Hgb: 7.2, Hct: 21.5 s/p 2PRBC transfused, MCV: 102.2, Vit B12 <159, Folate 11.6, Vit D. 10.9, LDH: 7142, hemoccult negative stool and HIV negative. A negative abdominal/ pelvis CT Scan and no finding on CXR. Problem List: 1. Macrocytic Anemia with B12 Deficiency s/p Gastric Bypass 2. Generalized pain: 3. Liver Cirrhosis 4. Genital HSV Plan: 1. Macrocytic Anemia due to B12 Deficiency s/p Gastric Bypass A: Patient is expereincing a macrocytic anemia due to B12 deficiency s/p Gastric bypass in 2005 and being no compliant with vitamins regimen. Clinic presentation of neurological manifestations (tingling and paresthesia) and fatigue, are both directly related to B12 Deficiency. B12 levels are severely low, her hemoglobin and hematocrit were critically low in admission and after 2PRBC are in 7.2 and 21.5 respectively. A MCV of more than 100 is specific for Macrocytic Anemia. A rule out of Folate deficiency causing Macrocytic Anemia was done when the folate levels are in normal parameters. B: Plan: Start patient on Cyanocabalamin 1000mcg IM after patient states having nauseas with vitamin via oral route. Keep Multivitamin 1 Tab daily. Repeat CBC twice a day to watch improvements. 2. Generalized pain: Patient is experiencing generalized pain in muscles and bones as stated by her. A: No changes or acute finding on Chest Xray and Abd/ Pelvis CT scan. A vitamin D deficiency (10.9) can be associated to this pain and bone demineralization. A Calcium levels the day of admission of 8.5 could rule out this possibility. Otherwise a prevention of Osteomalacia due to long hisotry of malnutrition and low vitamins levels should be taken. Osteomalacia presentation start in patients with < 10ng/mL of Vit D. A diferential diagnosis of malignancy can be done due to bone pain, generalized weakness and night sweats present. No hisotry of cancer in family beside her Dad, that has a history of skin cancer. B: Plan: Calcium replacement: 600mg Daily PO, Multivitamins and Cholecalciferol 400 IU Daily PO. A Bone Density scan should be perform to rule out any malignancy and demineralization. 3. Liver Cirrhosis A: Patient has a history of Chronic Liver cirrhosis due to Fatty Liver due to Morbid obesity and chronic drinker in the past. AST levels of 62, Total Ortiz of 1.6 and Direct Ortiz of 0.4, LFT findings suggest a Liver injury and hyperbilirubinemia. An increased of Unconjugated Bilirubin is possible due to increase of RBC break down (LDH: 7142). An AST increased is clinically significant for liver injury. Due to this possiblity, a possible differential diagnosis of Esophageal varices take place even if hemoccult negative stool and no findings on imaging. B: Plan: Repeat LFT and EGD will be perfomed today. 4. Genital HSV A: Patient has a history of Genital HSV since 4 weeks ago. B: Plan: Valancyclovir 500mg 2200PO
--- NOTE | 2017-01-27 15:32 | Proc Note Endoscopy ---
Endoscopy Procedure Medical History: unchanged ([facility] [facility]) Mental Status: alert/oriented Heart/Lung Eval Prior to Sedation: within normal limits Candidate for Sedation? Yes Procedure Date: 01/27/17 Procedure Type: EGD w/biopsy Crusher Foreman: Collin Segura MD ASA Classification: III Indications: Dyspepsia, anemia. Cirrhosis rule out varices. Instrument: diagnostic gastroscope Meds Received: MAC Patient's Tolerance: good Complications: none Extent Reached: rupesh limb of the jejunum Procedure: After getting written informed consent the patient was placed in the left lateral decubitus position with pulse oximetry, cardiac monitoring, and supplemental oxygen given. A bite block was inserted and IV sedation was given until the desired effect was achieved. A high definition upper Olympus endoscope was then inserted into the mouth and advanced to the rupesh limb of the jejunum with little difficulty. Retroflexed views and photodocumentation was obtained. Findings: Esophagus: The esophageal mucosa was grossly normal in appearance and there was a normal-appearing Z line at 40 cm from the incisors. There were no esophageal varices, strictures, or ulcers appreciated. Stomach: Surgical anastomosis was at approximately 44-45 cm from the incisors and was entirely normal in appearance. The gastric mucosa was also normal in appearance without any ulcers, erosions, masses, or evidence of portal hypertensive gastropathy. Limited retroflexed views were able to be obtained within the pouch and were normal in appearance without evidence of gastric varices biopsies were obtained from the gastric pouch with cold biopsy forceps and were sent to pathology for further evaluation. Jejunum: Both the blind limb and a ferritin limb were entered and were grossly normal in appearance with normal-appearing villi. Random biopsies were obtained from the jejunal mucosa with cold biopsy forceps and were sent pathology for further evaluation. Impression: 1. Grossly normal gastric bypass anatomy with a small pouch approximate 4-5 cm in length status post biopsies of the gastric pouch and jejunum. Recommendations: 1. Advance diet as tolerated. 2. Follow CBCs and transfuse as needed to keep hemoglobin greater than 7. 3. She should follow up the pathology results with me as an outpatient. 4. Consideration should be given to repeat the upper endoscopy in 3 years for continued screening for varices. 5. She should use otc ppis or h2ras as needed for dypspeptic symptoms or heartburn. CC: MIHAI OLIVO,TIFFANY
[2017-01-27 20:22] LABS: ABSOLUTE BASOPHIL COUNT 0 /CUMM (0.0-0.2); ABSOLUTE EOSINOPHIL COUNT 0 /CUMM (0.0-0.7); ABSOLUTE GRANULOCYTE CT 1.2 /CUMM (1.4-6.5); ABSOLUTE LYMPH COUNT 1.2 /CUMM (1.2-3.4); ABSOLUTE MONOCYTE COUNT 0.1 /CUMM (0.10-0.60); BASOPHIL % 0.1 % (0.0-2.0); EOSINOPHIL % 0.3 % (0-5); MEAN CORPUSCULAR HGB 35.3 PG (27.0-31.0); MEAN CORPUSCULAR HGB CONC 34.2 G/DL (33.0-37.0); MEAN CORPUSCULAR VOLUME 103.1 FL (81.0-99.0); PLATELET COUNT 172 /CUMM (130-400); RBC DISTRIBUTION WIDTH 33.4 % (11.5-14.5); RED BLOOD CELL CT 2.23 /CUMM (4.20-5.40); WHITE BLOOD CELL COUNT 2.6 /CUMM (4.8-10.8)
[2017-01-27 21:04] LABS: GRANULOCYTE % 48.4 % (42.2-75.2)
--- NOTE | 2017-01-27 21:10 | NUR ---
PT STATES THAT SHE IS ON DAY 4 OF HER PERIOD, AND THAT SHE'S BLEEDING HEAVILY, SHE SAID SHE ALSO HAS INCREASED PAIN;WHICH IS MORE THAN HER USUAL. MD BYRD TEXT PAGED. NO FURTHER ORDERS AT THIS TIME. MD CHAN CALLED AND SAID HE WILL BE AT BEDSIDE SOON.
[2017-01-27 23:34] VITALS: BP 128/72
[2017-01-28 07:03] VITALS: BP 142/68
--- NOTE | 2017-01-28 07:23 | PN- Housestaff ---
TRISHA OLIVO,ANTONIO 01/28/17 0723: Subjective Follow-up For: Symptomatic anemia Subjective: I saw and examined the patient today. States she has some mild RUQ pain. Has nausea and flatulence after eating quickly. States her hands bother her the most. States she has numbness and tingling and pain in her fingers which kept her awake overnight. Denies chest pain, SOB, fever, chills, vomitting, diarrhea or constipation, lightheadedness. Feels weak and SOB with physical exertion. Review of Systems Constitutional: Reports: see HPI, weakness. Objective Last 24 Hrs of Vital Signs/I&O Vital Signs Date Time Temp Pulse Resp B/P B/P Pulse O2 O2 Flow FiO2 Mean Ox Delivery Rate 01/28 1436 98.0 76 18 124/60 99 Room Air 01/28 0703 98.7 74 20 142/68 99 Room Air 01/27 2334 98.8 65 20 128/72 98 Intake & Output 01/28 1600 01/28 0800 01/28 0000 Intake Total 1050 600 600 Output Total Balance 1050 600 600 Intake, Blood 250 Product Intake, Oral 800 600 600 Patient 190 lb Weight Physical Exam General Appearance: Alert, Oriented X3, Cooperative, No Acute Distress HEENT: Atraumatic, PERRLA, Mucous Membr. moist/pink Cardiovascular: Regular Rate, Normal S1, Normal S2 Lungs: Clear to Auscultation Abdomen: Normal Bowel Sounds, Soft, mild tenderness in RUQ, no rebound or guarding, splenomegaly present, no masses palpable Extremities: No Cyanosis, Normal Pulses Assessment/Plan Assessment: Ms Flores is a 31-year-old female who was presented to the emergency department complaining of weakness and upper extremity pain. She does have a history of Kaci-en-Y bypass done in 2005 has not been taking by mouth PO supplements over the last few months. Will admit the patient to general medicine service 1. Symptomatic anemia * most likely 2/2 vitamin B-12 deficiency given macrocytosis and neurologic manifestations * S/P 2 units of PRBCs. Target H/H > 7.0 and 21. * Today: Patient's H/H dropped from 7.9/23.0 to 7.1/21.2 likely due to active hemolysis as LDH is still elevated and pt's B12 deficiency will take time to resolve. Will give pt 1pRBC today and recheck CBC tomorrow AM. * EGD: grossly normal gastric bypass anatomy with a small puch approximate 4-5cm in length post biopsies of the gastric pouch and jejunum * GI consulted and appreciate recommendations: - Check thiamine and copper levels, carotene, alpha-fetoprotein - recheck with pathology lab tomorrow AM-must be preapproved. - B12 supplementation, Supplemental vitamin D, calcium, folate, zinc, multivitamins - s/p EGD: - outpatient follow up with Dr. Segura for pathology results - consider PPI/ H2 felipe * Fingerstick glucose with postprandial symptoms such as diaphoresis, anxiety, somnolence. 2. Pancytopenia, splenomegaly and mild lymphadenopathy * CT: Diffuse mild lymphadenopathy without significant progression or regression. Nonspecific hepatosplenomegaly. * Hematology consult appreciated: As per Dr. Katz - pancytopenia likely due to b12 deficiency and per GI: due to fatty liver cirrhosis - parenteral vit b12 replacement - lymphadenopathy/splenomegaly due to vit B12 deficiency - will not pursue LN biopsy/BM biopsy at this time - will check with Dr. Katz for B12 management prior to discharging 3. 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 History of HSV -1 infection * on chronic suppressive therapy * will continue valtrex DVT prophylaxix: ALPS Diet: Regular diet Code: Full code Dispo: anticipated discharge home tomorrow pending stable H/H tomorrow Problem List: 1. HSV-1 infection 2. Symptomatic anemia 3. Lymphadenopathy 4. Hepatomegaly 5. Splenomegaly 6. Lymphadenopathy Pain Ratin Pain Location: as per pt: her entire body, mostly her hands Pain Goal: Remain pain free Pain Plan: oxycodone 5mg q6h PRN lidocaine patch daily will add gabapentin for peripheral neuropathy Tomorrow's Labs & Rationales: CBC BEP GRISELDA OLIVO,FREDRICK 01/28/17 1556: Attending MD Review Statement Attending Statement Attending MD Statement: examined this patient, discuss w/resident/PA/ROCK CRUSHING MACHINE OPERATOR, agreed w/resident/PA/ROCK CRUSHING MACHINE OPERATOR, reviewed EMR data (avail), discussed with nursing, discussed with case mgmt, reviewed images, amended to note Attending Assessment/Plan: Patient seen and examined, still complains of feeling tingling in bilateral upper extremities. H&H dropped this morning. Will transfuse another unit. He started the patient today on gabapentin. Patient still getting vitamin B12 injections. Please check with Dr. Salamanca about discharge plan in terms of vitamin B12 injections. Patient will continue to require multivitamins. But monitor H&H and recheck the morning. If stable likely she can be discharged home tomorrow. home tomorrow.
--- NOTE | 2017-01-28 07:58 | Patient Discharge Instructions ---
Discharge Instructions General Discharge Information You were seen/treated for: severe B12 deficiency You had these procedures: B12 repletion Special Instructions: 1. Follow up with your PCP in one week 2. Follow up with your bariatric surgeon 3. You will require B12 replacement for your anemia. Follow up with mill laborer and PCP. 4. Take oral B12 replacement along with necessary vitamin supplementation 5. Follow up with Dr. Segura for biopsy results Diet Recommended Diet: Bariatric Activity Activity Self Limited: Yes Acute Coronary Syndrome Inclusion Criteria At DC or during hospital stay patient has or had the following: ACS DIAGNOSIS No Discharge Core Measures Meds if any: Prescribed or Continued at Discharge Meds if any: NOT Prescribed or Continued at Discharge Congestive Heart Failure Inclusion Criteria At DC or during hospital stay patient has or had the following: CHF DIAGNOSIS No Discharge Core Measures Meds if any: Prescribed or Continued at Discharge Meds if any: NOT Prescribed or Continued at Discharge Cerebrovascular accident Inclusion Criteria At DC or during hospital stay patient has or had the following: CVA/TIA Diagnosis No Discharge Core Measures Meds if any: Prescribed or Continued at Discharge Meds if any: NOT Prescribed or Continued at Discharge Venous thromboembolism Inclusion Criteria VTE Diagnosis No VTE Type NONE VTE Confirmed by (Test) NONE Discharge Core Measures - Per Current guidelines, there needs to be overlap - treatment for the first 5 days of Warfarin therapy. - If discharged on Warfarin prior to 5 days of - overlap therapy, the patient will need to be - assessed for post discharge needs including - *Post discharge parental anticoagulation - *Warfarin and/or parental anticoagulation education - *Follow up date to check INR post discharge At least 5 days overlap therapy as Inpatient No Meds if any: Prescribed or Continued at Discharge Note: Overlap Therapy is Warfarin and Anticoagulant Meds if any: NOT Prescribed or Continued at Discharge
[2017-01-28 08:31] LABS: ABSOLUTE BASOPHIL COUNT 0 /CUMM (0.0-0.2); ABSOLUTE EOSINOPHIL COUNT 0 /CUMM (0.0-0.7); ABSOLUTE LYMPH COUNT 1.5 /CUMM (1.2-3.4); ABSOLUTE MONOCYTE COUNT 0.1 /CUMM (0.10-0.60); BASOPHIL % 0.4 % (0.0-2.0); EOSINOPHIL % 0.4 % (0-5); GRANULOCYTE % 37.2 % (42.2-75.2); HEMATOCRIT 21.2 % (37-47); MEAN CORPUSCULAR HGB 34.3 PG (27.0-31.0); MEAN CORPUSCULAR HGB CONC 33.5 G/DL (33.0-37.0); MEAN CORPUSCULAR VOLUME 102.3 FL (81.0-99.0); MEAN PLATELET VOLUME 8.4 FL (7.4-10.4); PLATELET COUNT 139 /CUMM (130-400); RBC DISTRIBUTION WIDTH 33.1 % (11.5-14.5); RED BLOOD CELL CT 2.07 /CUMM (4.20-5.40); WHITE BLOOD CELL COUNT 2.7 /CUMM (4.8-10.8)
[2017-01-28 14:36] VITALS: BP 124/60
[2017-01-28] MEDS ORDERED: ONE DAILY MULT1 EAC2 PO (15:08)
[2017-01-28] MEDS ORDERED: GABAPENTIN100 M2 PO (15:08)
[2017-01-28] MEDS ORDERED: VITAMIN D3400 UNI1 PO (15:08)
[2017-01-29 06:33] VITALS: BP 136/76
--- NOTE | 2017-01-29 06:55 | PN- Hematology ---
Subjective Subjective: Feeling generally better but concerned about lymphadenopathy report on CAT scan Review of Systems: 12 point review of systems otherwise nonspecific Objective Vital Signs and I&Os Vital Signs Date Time Temp Pulse Resp B/P B/P Pulse O2 O2 Flow FiO2 Mean Ox Delivery Rate 01/29 0633 99.4 98 20 136/76 98 Room Air 01/28 1436 98.0 76 18 124/60 99 Room Air 01/28 0703 98.7 74 20 142/68 99 Room Air Intake & Output 01/29 0800 01/29 0000 01/28 1600 01/28 0801/28 0000 01/27 1600 Intake Total 246 360 7898 600 600 30 Output Total Balance 404 895 0153 600 600 30 Intake, Blood 250 Product Intake, Oral 600 600 800 600 600 30 Output, Urine Patient 190 lb Weight Gen.: in NAD ENT: Sclera anicteric Chest: Normal respiratory effort, clear breath sounds Cor: RRR, no extra sounds Abdomen: Soft, bowel sounds present, no tenderness, no rebound Extremities: Without clubbing, cyanosis, or edema Neurology: Alert and oriented 3, no gross deficit Current Medications: Current Medications Sig/Josr Start time Last Medication Dose Route Stop Time Status Admin Calcium 600 MG DAILY 01/27 1000 AC 01/28 PO 0913 Cholecalciferol 400 IU DAILY 01/26 1000 AC 01/28 PO 0913 Diphenhydramine HCl 25 MG .STK-MED ONE 01/28 2223 DC PO 01/28 2224 Diphenhydramine HCl 25 MG AT BEDTIME PRN 01/26 0100 AC 01/27 PO 2157 Gabapentin 100 MG Q8 01/28 1400 AC 01/29 PO 0430 Lidocaine 1 PAT DAILY@1700 01/28 1700 AC 01/28 EXT 1752 Lidocaine 1 PAT DAILY 01/28 1003 DC EXT Lidocaine 1 PAT DAILY 01/26 1128 DC 01/27 EXT 1717 Multivitamins 1 TAB DAILY 01/26 1309 AC 01/28 PO 0913 Oxycodone HCl 5 MG Q6P PRN 01/26 1130 AC 01/29 PO 0045 Valacyclovir HCl 500 MG 2200 01/26 2200 AC 01/28 PO 2217 Zinc Sulfate 220 MG DAILY 01/26 1309 AC 01/28 PO 0913 Results Last 24 Hours of Lab Results: Laboratory Tests 01/28 01/28 0702 0702 Chemistry Sodium (137 - 145 mmol/L) 139 Potassium (3.5 - 5.1 mmol/L) 4.1 Chloride (98 - 107 mmol/L) 102 Carbon Dioxide (22 - 30 mmol/L) 32 H Anion Gap (5 - 16) 5 BUN (7 - 17 mg/dL) 6 L Creatinine (0.5 - 1.0 mg/dL) 0.5 Estimated GFR (>60 ml/min) > 60 BUN/Creatinine Ratio (7 - 25 %) 12.0 Total Bilirubin (0.2 - 1.3 mg/dL) 1.0 Lactate Dehydrogenase (313 - 618 U/L) 5614 H Hematology CBC w Diff MAN DIFF ORDERED WBC (4.8 - 10.8 /CUMM) 2.7 L RBC (4.20 - 5.40 /CUMM) 2.07 L Hgb (12.0 - 16.0 G/DL) 7.1 *L Hct (37 - 47 %) 21.2 L MCV (81.0 - 99.0 FL) 102.3 H MCH (27.0 - 31.0 PG) 34.3 H RDW (11.5 - 14.5 %) 33.1 H Plt Count (130 - 400 /CUMM) 139 MPV (7.4 - 10.4 FL) 8.4 Gran % (42.2 - 75.2 %) 37.2 L Lymphocytes % (20.5 - 51.1 %) 57.4 H Monocytes % (1.7 - 9.3 %) 4.6 Eosinophils % (0 - 5 %) 0.4 Basophils % (0.0 - 2.0 %) 0.4 Absolute Granulocytes (1.4 - 6.5 /CUMM) 1.0 L Segmented Neutrophils (42.2 - 75.2 %) 45 Band Neutrophils (0.0 - 5.0 %) 2 Absolute Lymphocytes (1.2 - 3.4 /CUMM) 1.5 Lymphocytes (20.5 - 51.1 %) 50 Monocytes (1.7 - 9.3 %) 2 Absolute Monocytes (0.10 - 0.60 /CUMM) 0.1 L Absolute Eosinophils (0.0 - 0.7 /CUMM) 0 Basophils (0.0 - 2.0 %) 1 Absolute Basophils (0.0 - 0.2 /CUMM) 0 Nucleated RBCs (0.0 - 0.0 /100WBC) 2 H Platelet Estimate (ADEQUATE) DECREASED Polychromasia 2+ Hypochromic-Microcytic 2+ Poikilocytosis 2+ Anisocytosis 2+ Macrocytic Cells 2+ PUBS MCHC (33.0 - 37.0 G/DL) 33.5 Retic Count (0.5 - 2.0 %) 7.55 H Haptoglobin Pending Assessment/Plan Assessment/Recommendations: Anemia/leukopenia-patient with documented blood B12 deficiency, elevated LDH not likely field representative hemolysis but rather ineffective erythropoiesis, given normal bilirubin Recommend- Patient has received 2 doses of IM vitamin B12, would give 3 more while in hospital Follow-up my office Prominent lymphadenopathy in CAT scan-I discussed, again, with the patient the lack of progression on serial CAT scans. The low suspicion for a malignant etiology for lymphadenopathy [id number] as an outpatient
[2017-01-29 08:03] LABS: ABSOLUTE BASOPHIL COUNT 0 /CUMM (0.0-0.2); ABSOLUTE EOSINOPHIL COUNT 0 /CUMM (0.0-0.7); ABSOLUTE GRANULOCYTE CT 0.9 /CUMM (1.4-6.5); ABSOLUTE LYMPH COUNT 1.8 /CUMM (1.2-3.4); ABSOLUTE MONOCYTE COUNT 0.2 /CUMM (0.10-0.60); BASOPHIL % 0.5 % (0.0-2.0); EOSINOPHIL % 0.3 % (0-5); GRANULOCYTE % 30.1 % (42.2-75.2); HEMATOCRIT 24.7 % (37-47); MEAN CORPUSCULAR HGB CONC 33.8 G/DL (33.0-37.0); MEAN CORPUSCULAR VOLUME 100.7 FL (81.0-99.0); PLATELET COUNT 141 /CUMM (130-400); RBC DISTRIBUTION WIDTH 33.8 % (11.5-14.5); RED BLOOD CELL CT 2.45 /CUMM (4.20-5.40)
--- NOTE | 2017-01-29 08:58 | PN- Student ---
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 Patient is s/p tranfusion of 1PRBC yesterday after having a Hgb: 7.1 and Hct: 21.2 MCV: 102.3, no skin or somatic reaction with transfusion. Patient also states that she continues coughing regurlarly with cool sputum production. No nauseas, chills, fever, diarrhea, constipation, hemptysis, chest pain or orthopnea. Patient states that still having SOB when feels anxious or when she is walking. Patient states that she still worried about lymphadenopathy showed in previous abdominal CT Scan. Current Medications Sig/Josr Start time Last Medication Dose Route Stop Time Status Admin Calcium 600 MG DAILY 01/27 1000 AC 01/28 PO 09 Cholecalciferol 400 IU DAILY 01/26 1000 AC 01/28 PO 0913 Diphenhydramine HCl 25 MG .STK-MED ONE 01/28 2223 DC PO 01/28 2224 Diphenhydramine HCl 25 MG AT BEDTIME PRN 01/26 0100 AC 01/27 PO 2157 Gabapentin 100 MG Q8 01/28 1400 AC 01/29 PO 0430 Lidocaine 1 PAT DAILY@1700 01/28 1700 AC 01/28 EXT 1752 Lidocaine 1 PAT DAILY 01/28 1003 DC EXT Lidocaine 1 PAT DAILY 01/26 1128 DC 01/27 EXT 1717 Multivitamins 1 TAB DAILY 01/26 1309 AC 01/28 PO 0913 Oxycodone HCl 5 MG Q6P PRN 01/26 1130 AC 01/29 PO 0045 Valacyclovir HCl 500 MG 2200 01/26 2200 AC 01/28 PO 2217 Zinc Sulfate 220 MG DAILY 01/26 1309 AC 01/28 PO 0913 Review of Systems Constitutional: Reports: weakness and fatigue. EENTM: Reports: visual changes. Cardiovascular: Denies: Chest pain, dizziness. Respiratory: Denies: SOB in rest. Reports: cough with cool mucus and exertional dyspnea. GI: Denies: blood in stool, vomitis. Reports: abdominal pain, nausea, changes in stool. Genitourinary: Denies: hematuria, dysuria, or changes in color of urine. Musculoskeletal: Reports: back pain, muscle pain, neck pain, upper extremity pain. Neurological/Psychological: Reports: anxiety and tingling sensation in both hands. Hematologic/Endocrine: Denies: bruising. Objective Objective: Last 24 hours Vital Signs: Vital Signs Date Time Temp Pulse Resp B/P B/P Pulse O2 O2 Flow FiO2 Mean Ox Delivery Rate 01/29 0633 99.4 98 20 136/76 98 Room Air 01/28 1436 98.0 76 18 124/60 99 Room Air Physical Examination: General Appearance Alert, Oriented X3, Cooperative, No distress Skin No Rashes, No Breakdown, midline lumbar tenderness, tenderness in Righ arm in bicep area. A round erythema about more than 10mm in previous PPD test performed. Skin Temp/Moisture Exam: Warm/Dry HEENT Atraumatic, PERRLA, EOMI Cardiovascular RRR, Normal S1, Normal S2, No Murmurs Lungs Clear to Auscultation Bilaterally, Normal Air Entry Abdomen: Normal abdome shape, no bruises noted, Bowel Sounds +, Soft, difuse soreness under deep palpation in RUQ and RLQ. Spleen palpated. Neurological Cranial Nerves 3-12 intact, Sensory intact in lower extremities, dimished sensory perception in distal upper extremities, muscle strenght 4/5 in upper extremities, 5/5 in lower extrtemities. Phalen's test and Tinel's sign negative. Normal gait and posture. Extremities No Edema or Erythema, Normal Pulses in extremities X4. Diagnostic Data: PPD Test Results: 01/29/17, 07:30 Negative (<5mm induration) CXR: 01/29/17, 09:25 FINDINGS: The lung figueroa are well expanded and appear clear bilaterally. The cardiac silhouette is normal. There are no pleural effusions or pneumothorax. The central pulmonary vasculature is normal. The hilar regions appear normal. There is a mild dextroscoliosis in the midthoracic region. There are multiple surgical clips in the upper abdomen. IMPRESSION: 1. There are no acute cardiopulmonary findings. Results Results: Laboratory Tests 01/29 01/28 0655 0702 Chemistry Sodium (137 - 145 mmol/L) 139 Potassium (3.5 - 5.1 mmol/L) 4.5 Chloride (98 - 107 mmol/L) 103 Carbon Dioxide (22 - 30 mmol/L) 31 H Anion Gap (5 - 16) 5 BUN (7 - 17 mg/dL) 8 Creatinine (0.5 - 1.0 mg/dL) 0.5 Estimated GFR (>60 ml/min) > 60 BUN/Creatinine Ratio (7 - 25 %) 16.0 Hematology CBC w Diff MAN DIFF ORDERED WBC (4.8 - 10.8 /CUMM) 3.0 L RBC (4.20 - 5.40 /CUMM) 2.45 L Hgb (12.0 - 16.0 G/DL) 8.3 L Hct (37 - 47 %) 24.7 L MCV (81.0 - 99.0 FL) 100.7 H MCH (27.0 - 31.0 PG) 34.0 H RDW (11.5 - 14.5 %) 33.8 H Plt Count (130 - 400 /CUMM) 141 MPV (7.4 - 10.4 FL) 9.0 Gran % (42.2 - 75.2 %) 30.1 L Lymphocytes % (20.5 - 51.1 %) 61.3 H Monocytes % (1.7 - 9.3 %) 7.8 Eosinophils % (0 - 5 %) 0.3 Basophils % (0.0 - 2.0 %) 0.5 Absolute Granulocytes (1.4 - 6.5 /CUMM) 0.9 L Absolute Lymphocytes (1.2 - 3.4 /CUMM) 1.8 Absolute Monocytes (0.10 - 0.60 /CUMM) 0.2 Absolute Eosinophils (0.0 - 0.7 /CUMM) 0 Absolute Basophils (0.0 - 0.2 /CUMM) 0 Platelet Estimate (ADEQUATE) DECREASED Polychromasia 2+ Hypochromic-Microcytic 2+ Poikilocytosis 1+ Basophilic Stippling RARE Anisocytosis 2+ Macrocytic Cells 1+ PUBS MCHC (33.0 - 37.0 G/DL) 33.8 Haptoglobin Pending 01/28 01/27 0702 1912 Chemistry Sodium (137 - 145 mmol/L) 139 Potassium (3.5 - 5.1 mmol/L) 4.1 Chloride (98 - 107 mmol/L) 102 Carbon Dioxide (22 - 30 mmol/L) 32 H Anion Gap (5 - 16) 5 BUN (7 - 17 mg/dL) 6 L Creatinine (0.5 - 1.0 mg/dL) 0.5 Estimated GFR (>60 ml/min) > 60 BUN/Creatinine Ratio (7 - 25 %) 12.0 Total Bilirubin (0.2 - 1.3 mg/dL) 1.0 Lactate Dehydrogenase (313 - 618 U/L) 5614 H Hematology CBC w Diff MAN DIFF ORDERED NO MAN DIFF REQ WBC (4.8 - 10.8 /CUMM) 2.7 L 2.6 L RBC (4.20 - 5.40 /CUMM) 2.07 L 2.23 L Hgb (12.0 - 16.0 G/DL) 7.1 *L 7.9 L Hct (37 - 47 %) 21.2 L 23.0 L MCV (81.0 - 99.0 FL) 102.3 H 103.1 H MCH (27.0 - 31.0 PG) 34.3 H 35.3 H RDW (11.5 - 14.5 %) 33.1 H 33.4 H Plt Count (130 - 400 /CUMM) 139 172 MPV (7.4 - 10.4 FL) 8.4 10.0 Gran % (42.2 - 75.2 %) 37.2 L 48.4 Lymphocytes % (20.5 - 51.1 %) 57.4 H 47.5 Monocytes % (1.7 - 9.3 %) 4.6 3.7 Eosinophils % (0 - 5 %) 0.4 0.3 Basophils % (0.0 - 2.0 %) 0.4 0.1 Absolute Granulocytes (1.4 - 6.5 /CUMM) 1.0 L 1.2 L Segmented Neutrophils (42.2 - 75.2 %) 45 Band Neutrophils (0.0 - 5.0 %) 2 Absolute Lymphocytes (1.2 - 3.4 /CUMM) 1.5 1.2 Lymphocytes (20.5 - 51.1 %) 50 Monocytes (1.7 - 9.3 %) 2 Absolute Monocytes (0.10 - 0.60 /CUMM) 0.1 L 0.1 L Absolute Eosinophils (0.0 - 0.7 /CUMM) 0 0 Basophils (0.0 - 2.0 %) 1 Absolute Basophils (0.0 - 0.2 /CUMM) 0 0 Nucleated RBCs (0.0 - 0.0 /100WBC) 2 H Platelet Estimate (ADEQUATE) DECREASED Polychromasia 2+ Hypochromic-Microcytic 2+ Poikilocytosis 2+ Anisocytosis 2+ Macrocytic Cells 2+ PUBS MCHC (33.0 - 37.0 G/DL) 33.5 34.2 Retic Count (0.5 - 2.0 %) 7.55 H 01/27 01/27 01/27 1500 0712 0712 Chemistry Sodium (137 - 145 mmol/L) 138 Potassium (3.5 - 5.1 mmol/L) 4.1 Chloride (98 - 107 mmol/L) 102 Carbon Dioxide (22 - 30 mmol/L) 32 H Anion Gap (5 - 16) 4 L BUN (7 - 17 mg/dL) 6 L Creatinine (0.5 - 1.0 mg/dL) 0.5 Estimated GFR (>60 ml/min) > 60 BUN/Creatinine Ratio (7 - 25 %) 12.0 Total Bilirubin (0.2 - 1.3 mg/dL) 1.6 H Direct Bilirubin (< 0.4 mg/dL) 0.4 Lactate Dehydrogenase (313 - 618 U/L) Cancelled 7142 H Hematology CBC w Diff Cancelled WBC Cancelled RBC Cancelled Hgb Cancelled Hct Cancelled MCV Cancelled MCH Cancelled RDW Cancelled Plt Count Cancelled MPV Cancelled PUBS MCHC Cancelled Haptoglobin (43 - 212 mg/dL) <15 L 01/27 01/26 0712 1706 Chemistry Alpha Fetoprotein (() ng/mL) 1.7 Hematology CBC w Diff MAN DIFF ORDERED WBC (4.8 - 10.8 /CUMM) 2.7 L RBC (4.20 - 5.40 /CUMM) 2.10 L Hgb (12.0 - 16.0 G/DL) 7.2 *L Hct (37 - 47 %) 21.5 L MCV (81.0 - 99.0 FL) 102.2 H MCH (27.0 - 31.0 PG) 34.1 H RDW (11.5 - 14.5 %) 33.6 H Plt Count (130 - 400 /CUMM) 144 MPV (7.4 - 10.4 FL) 8.3 Gran % (42.2 - 75.2 %) 41.4 L Lymphocytes % (20.5 - 51.1 %) 55.5 H Monocytes % (1.7 - 9.3 %) 2.3 Eosinophils % (0 - 5 %) 0.4 Basophils % (0.0 - 2.0 %) 0.4 Absolute Granulocytes (1.4 - 6.5 /CUMM) 1.1 L Segmented Neutrophils (42.2 - 75.2 %) 36 L Absolute Lymphocytes (1.2 - 3.4 /CUMM) 1.5 Lymphocytes (20.5 - 51.1 %) 57 H Monocytes (1.7 - 9.3 %) 7 Absolute Monocytes (0.10 - 0.60 /CUMM) 0.1 L Absolute Eosinophils (0.0 - 0.7 /CUMM) 0 Absolute Basophils (0.0 - 0.2 /CUMM) 0 Nucleated RBCs (0.0 - 0.0 /100WBC) 1 H Polychromasia 1+ Poikilocytosis 1+ Basophilic Stippling Anisocytosis 2+ Microcytic Cells 1+ Macrocytic Cells 1+ PUBS MCHC (33.0 - 37.0 G/DL) 33.4 Retic Count (0.5 - 2.0 %) 6.04 H Haptoglobin (43 - 212 mg/dL) <15 L 01/26 1706 Chemistry Lactate Dehydrogenase (313 - 618 U/L) 7166 H Hematology CBC w Diff NO MAN DIFF REQ WBC (4.8 - 10.8 /CUMM) 2.8 L RBC (4.20 - 5.40 /CUMM) 2.12 L Hgb (12.0 - 16.0 G/DL) 7.2 *L Hct (37 - 47 %) 21.7 L MCV (81.0 - 99.0 FL) 102.3 H MCH (27.0 - 31.0 PG) 34.1 H RDW (11.5 - 14.5 %) 33.9 H Plt Count (130 - 400 /CUMM) 159 MPV (7.4 - 10.4 FL) 8.7 Gran % (42.2 - 75.2 %) 49.3 Lymphocytes % (20.5 - 51.1 %) 48.5 Monocytes % (1.7 - 9.3 %) 1.5 L Eosinophils % (0 - 5 %) 0.2 Basophils % (0.0 - 2.0 %) 0.5 Absolute Granulocytes (1.4 - 6.5 /CUMM) 1.4 Absolute Lymphocytes (1.2 - 3.4 /CUMM) 1.4 Absolute Monocytes (0.10 - 0.60 /CUMM) 0 L Absolute Eosinophils (0.0 - 0.7 /CUMM) 0 Absolute Basophils (0.0 - 0.2 /CUMM) 0 PUBS MCHC (33.0 - 37.0 G/DL) 33.3 Assessment/Plan Assessment: Assesment: Patient is a 31 y-o female who is Hospitalization day #4 due to severe anemic state with a history of Chronic anemia, Chronic Cirrhosis, 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 Patient is experiencing fatigue, tingling sensation on both hands, muscle soreness and generalize weakness. Patient also present today with a negative PPD test. Patient is presenting a Hgb: 8.3, Hct: 24.7 s/p 1PRBC transfused yesterday, MCV: 100.7, Vit B12 <159, Folate 11.6, Vit D. 10.9, LDH: 7142, hemoccult negative stool and HIV negative. Problem List: 1. Macrocytic Anemia with B12 Deficiency s/p Gastric Bypass 2. Generalized pain. 3. Liver Cirrhosis. 4. Genital HSV. Plan: 1. Macrocytic Anemia due to B12 Deficiency s/p Gastric Bypass A: Patient is expereincing a macrocytic anemia due to B12 deficiency s/p Gastric bypass in 2005 and being no compliant with vitamins regimen. Clinic presentation of neurological manifestations (tingling and paresthesia) and fatigue, are both directly related to B12 Deficiency. B12 levels are severely low, her hemoglobin and hematocrit were critically low yesterday and after 1PRBC are in 8.3 and 24.7 respectively. A MCV of 100.7. An imporoved notice in her hemoglobin, hematocrit and MCV, after 3 PRBC in total and Vit B12 replacement. A rule out of Folate deficiency causing Macrocytic Anemia was done when the folate levels are in normal parameters (11.6). B: Plan: Keep patient on Cyanocabalamin 1000mcg IM after patient states having nauseas with vitamin via oral route. Stagecraft Teacher gave a recommendation of 3 doses in total of Vit. B12 IM meanwhile hospital. Keep Multivitamin 1 Tab daily. A Gabapentin 100mg Q8PO was started yesterday for shooting pain in hands, patient states today that is improving, keep same dose as outpatient. Plan for discharge today and follow as outpatient with construction foreman. 2. Generalized pain: Patient is experiencing generalized pain in muscles and bones as stated by her. A: No changes or acute finding on Chest Xray and Abd/ Pelvis CT scan. A vitamin D deficiency (10.9) can be associated to this pain and bone demineralization. A Calcium levels the day of admission of 8.5 could rule out this possibility. Otherwise a prevention of Osteomalacia due to long hisotry of malnutrition and low vitamins levels should be taken. Osteomalacia presentation start in patients with < 10ng/mL of Vit D. A diferential diagnosis of malignancy can be done due to bone pain, generalized weakness and night sweats present. No hisotry of cancer in family beside her Dad, that has a history of skin cancer. B: Plan: Calcium replacement: 600mg Daily PO, Multivitamins and Cholecalciferol 400 IU Daily PO. Lidocaine patch daily was started yesterday for pain, keep same regimen as outpatient. Patient is on Oxycodone 5mg Q6PRN, change to Tramadol 50mg Q4-6H PRN as patient preference. A Bone Density scan should be perform to rule out any malignancy and demineralization. 3. Liver Cirrhosis A: Patient has a history of Chronic Liver cirrhosis due to Fatty Liver due to Morbid obesity and chronic drinker in the past. AST levels of 62, Total Ortiz of 1.6 and Direct Ortiz of 0.4, LFT findings suggest a Liver injury and hyperbilirubinemia. An increased of Unconjugated Bilirubin is possible due to increase of RBC break down (LDH: 7142). An AST increased is clinically significant for liver injury. Due to this possiblity, a possible differential diagnosis of Esophageal varices take place even if hemoccult negative stool and no findings on imaging. An EGD was performed and no acute findings noted. B: Plan: Follow up with Roller Coaster Engineer as outpatient. 4. Genital HSV A: Patient has a history of Genital HSV since 4 weeks ago. B: Plan: keep Valancyclovir 500mg 2200PO
--- NOTE | 2017-01-29 09:00 | NUR ---
NURSING NOTE: PATIENT LEFT LFOOR VIA W/C WITH AIRBORNE PRECAUTION MASK IN PLACE FOR CHEST XRAY. WILL AWAIT RETURN.
--- NOTE | 2017-01-29 09:25 | NUR ---
NURSING NOTE: PATIENT RETURNED TO FLOOR. NO ACUTE CHANGES NOTED.
--- NOTE | 2017-01-29 09:31 | RADIOLOGY REPORT ---
EXAMINATION: XR CHEST CLINICAL INFORMATION: Positive PPD. Assess for active cavitary lesions. COMPARISON: Chest x-rays 07/09/2015 and 01/25/2017. TECHNIQUE: Frontal and lateral views of the chest were obtained. FINDINGS: The lung figueroa are well expanded and appear clear bilaterally. The cardiac silhouette is normal. There are no pleural effusions or pneumothorax. The central pulmonary vasculature is normal. The hilar regions appear normal. There is a mild dextroscoliosis in the midthoracic region. There are multiple surgical clips in the upper abdomen. IMPRESSION: 1. There are no acute cardiopulmonary findings.
--- NOTE | 2017-01-29 09:37 | Discharge Summary ---
Visit Information Visit Dates Admission Date: 01/25/17 Hospital Course Allergies: Coded Allergies: doxycycline (Intermediate, GI DISTRESS 10/11/15) Iodinated Contrast- Oral and IV Dye (IODINATED CONTRAST MEDIA - IV DYE) (HIVES, ITCHY, PHOTOSENSITIVE 10/11/15) Penicillins (GI DISTRESS 10/11/15) aspirin (AVOIDS 10/11/15) cortisone (SWELLING IN KNEES, FEVER 10/11/15) acetaminophen (Intermediate, LIVER DISEASE 10/11/15) shellfish derived (Intermediate, HIVES 10/11/15) morphine (Mild, NAUSEA 10/11/15) hydrocodone (LIVER PAIN 10/11/15) Discharge Instructions Medications at Discharge Discharge Medications: Continue taking these medications: Hyoscyamine (Levsin) 0.125 MG TABLET 1-2 Tablet ORAL EVERY SIX HOURS NEEDED as needed for ABDOMINAL CRAMPS Qty = 20 Promethazine HCl (Promethazine HCl) 25 MG TABLET 1 Tablet ORAL EVERY SIX HOURS NEEDED as needed for NAUSEA/VOMITING Qty = 12 Start taking the following new medications: Gabapentin (Gabapentin) 100 MG CAPSULE 1 Tablet ORAL EVERY 8 HOURS as needed for NEUROPATHIC PAIN Qty = 60 No Refills Cholecalciferol (Vitamin D3) (Vitamin D3) 400 UNIT TABLET 1 Tablet ORAL DAILY Qty = 30 No Refills Multivitamin (One Daily Multivitamin) 1 EACH TABLET 1 Tablet ORAL DAILY Qty = 30 No Refills
[2017-01-29] MEDS ORDERED: GABAPENTIN100 M2 PO (11:29)
[2017-01-29] MEDS ORDERED: ONE DAILY MULT1 EAC2 PO (11:29)
[2017-01-29] MEDS ORDERED: VITAMIN D3400 UNI1 PO (11:29)
--- NOTE | 2017-01-29 11:29 | NUR ---
NURSING NOTE: PATIENT LEFT FLOOR VIA AMBULATION WITH SELF FOR DISCHARGE HOME. PATIENT A/OX3, STEADY GAIT, PAIN CONTROLLED AT THIS TIME. PRESCRIPTIONS AND DISCHARGE INSTRUCTIONS EDUCATED TO PATIENT AT THIS TIME. IV DISCONTINUED.
--- NOTE | 2017-01-29 12:39 | PN- Att Addend ---
Attending Addendum Attending Brief Note Patient seen and examined, doing okay. Claims and gabapentin helped with a shooting pain but she still gets stinging. She was asking for prescription for gabapentin. She's also asking for prescription for Lidoderm as well as tramadol. Otherwise she is medically stable for discharge. Currently the PPD seems negative. Chest x-ray also was negative. Patient should be continued on multivitamin and I advised that she should be followed by a bariatric surgeon. Patient also needs a primary care doctor. Patient will follow with Dr. Salamanca about vitamin B12 injections.
--- NOTE | 2017-01-29 14:39 | PN- Housestaff ---
Subjective Follow-up For: Symptomatic anemia Subjective: I saw and examined the patient today. States the shooting pains in her hands have improved with initiation of gabapentin. As per nurse: pt had a PPD test done on admission. Pt has been scratching the area and it appears swollen. Denies cough chest pain, SOB, fever, chills, vomitting, diarrhea or constipation , lightheadedness. Feels weak and SOB with physical exertion related to anemia. Review of Systems Constitutional: Reports: see HPI, weakness. Objective Last 24 Hrs of Vital Signs/I&O Vital Signs Date Time Temp Pulse Resp B/P B/P Pulse O2 O2 Flow FiO2 Mean Ox Delivery Rate 01/29 0633 99.4 98 20 136/76 98 Room Air 01/28 1436 98.0 76 18 124/60 99 Room Air Intake & Output 01/29 1600 01/29 0800 01/29 0000 Intake Total 600 600 Output Total Balance 600 600 Intake, Oral 600 600 Output, Urine Physical Exam General Appearance: Alert, Oriented X3, Cooperative, No Acute Distress Skin: area of what appears to be <10mm induration at place of ppd on R arm. difficult to asses due to constant scratching by pt - difficult to asses due to consistent scratching HEENT: Atraumatic, Mucous Membr. moist/pink Cardiovascular: Regular Rate, Normal S1, Normal S2 Lungs: Clear to Auscultation Abdomen: Normal Bowel Sounds, Soft, No Tenderness Vascular: Normal Pulses Assessment/Plan Assessment: Ms Flores is a 31-year-old female who was presented to the emergency department complaining of weakness and upper extremity pain. She does have a history of Kaci-en-Y bypass done in 2005 has not been taking by mouth PO supplements over the last few months. Will admit the patient to general medicine service 1. Symptomatic anemia * most likely 2/2 vitamin B-12 deficiency given macrocytosis and neurologic manifestations * S/P 2 units of PRBCs. Target H/H > 7.0 and 21. * Today: Patient's H/H dropped from 7.9/23.0 to 7.1/21.2 likely due to active hemolysis as LDH is still elevated and pt's B12 deficiency will take time to resolve. Pt was given 1 pRBC yesterday. Repeat H/H this mornin.3/24.7 * EGD: grossly normal gastric bypass anatomy with a small puch approximate 4-5cm in length post biopsies of the gastric pouch and jejunum * GI consulted and appreciate recommendations: - Check thiamine and copper levels, carotene, alpha-fetoprotein - recheck with pathology lab tomorrow AM-must be preapproved. - B12 supplementation, Supplemental vitamin D, calcium, folate, zinc, multivitamins - s/p EGD: - outpatient follow up with Dr. Segura for pathology results - consider PPI/ H2 felipe * Fingerstick glucose with postprandial symptoms such as diaphoresis, anxiety, somnolence. 2. Pancytopenia, splenomegaly and mild lymphadenopathy * CT: Diffuse mild lymphadenopathy without significant progression or regression. Nonspecific hepatosplenomegaly. * Hematology consult appreciated: As per Dr. Katz - pancytopenia likely due to b12 deficiency and per GI: due to fatty liver cirrhosis - parenteral vit b12 replacement - lymphadenopathy/splenomegaly due to vit B12 deficiency - will not pursue LN biopsy/BM biopsy at this time - will check with Dr. Katz for B12 management prior to discharging 3. 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 Katz and Dr. Segura Problem List: 1. Symptomatic anemia 2. HSV-1 infection 3. Lymphadenopathy 4. Splenomegaly Pain Ratin Pain Location: everywhere but mostly hands Pain Goal: Pain 4 or less Pain Plan: percocet PRN gabapentin Tomorrow's Labs & Rationales: none
== END 2017-01-29 11:28 | DRG 663 ==
LOC: ERH 18:29 → 2NB 21:30 → ERHI 21:30 → 2NB 21:30 → ENRESERV 22:31 → 2NB 23:42 → ENPENDDIS 01-29 10:09 → 2NB 01-29 11:28
PROVIDERS: Emergency Medicine; Physician Assistant; Student in an Organized Health Care Education/Training Program; ADMIT Internal Medicine
PROC: 30233N1 Transfusion of Nonautologous Red Blood Cells into Peripheral Vein, Percutaneous Approach (ICD-10-PCS; 2017-01-25)
PROC: 0DB68ZX Excision of Stomach, Via Natural or Artificial Opening Endoscopic, Diagnostic (ICD-10-PCS; principal; 2017-01-27)
DX: D51.8 Other vitamin B12 deficiency anemias (principal); D61.818 Other pancytopenia; G62.9 Polyneuropathy, unspecified; K76.0 Fatty (change of) liver, not elsewhere classified; Z98.84 Bariatric surgery status; F17.210 Nicotine dependence, cigarettes, uncomplicated; E66.9 Obesity, unspecified; Z68.31 Body mass index [BMI] 31.0-31.9, adult; R59.1 Generalized enlarged lymph nodes; A60.00 Herpesviral infection of urogenital system, unspecified; E21.3 Hyperparathyroidism, unspecified; F14.90 Cocaine use, unspecified, uncomplicated; E46 Unspecified protein-calorie malnutrition; R10.13 Epigastric pain
CPT/HCPCS: 2NBP; 2NBSP; 86618; 36415; 74176; 80307; 81001; 81025; 82436; 83010; 86920; 87389; 93005; 93010; G0480; J3101; J3420; J3490; P9016